=== PATIENT | female | born 1945 | race Caucasian/White ===

== ENCOUNTER 2023-06-13 11:59 | Emergency (ER) | payer OTHER, SELFPAY ==
--- NOTE | ~2023-06-13 | XR_ITS ---
EXAMINATION: XR foot RT min 3V DATE: 06/13/2023 12:32 INDICATION: Right foot injury. TECHNIQUE: 4 views of right foot were obtained. COMPARISON: None. FINDINGS: Bone alignment is normal. There is a nondisplaced fracture of medial base of first distal p halanx. There is mild osteoarthritis of first metatarsophalangeal joint and some of the interphalange al joints. There is an enthesophyte at the posterior aspect of calcaneal tuberosity. IMPRESSION: 1. Nondisplaced fracture of medial base of first distal phalanx. Reviewed, dictated and finalized at location A. [employer]HEMAT[employer]
--- NOTE | ~2023-06-13 | XR_ITS ---
EXAMINATION: XR finger 5th LT min 2V DATE: 06/13/2023 12:31 INDICATION: Left hand fifth digit injury and pain. TECHNIQUE: 4 views of left hand fifth digit were obtained. COMPARISON: None. FINDINGS: Bone alignment is normal. There is a chip avulsion fracture of palmar base of fifth middle phalanx. 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 IMPRESSION: 1. Chip avulsion fracture of palmar base of fifth middle phalanx. Reviewed, dictated and finalized at location A. 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
[2023-06-13 12:10] VITALS: BP 135/59; PULSE 77; RESP 16; TEMP 36.8; O2SAT 99
--- NOTE | 2023-06-13 12:18 | ED.FALL ---
HPI - Fall General Chief Complaint: Extremity Injury, Lower Stated Complaint: Fall Injury/ Right Toes/Left Finger Time Seen by Provider: 06/13/23 12:06 History of Present Illness HPI Narrative: Patient presents for evaluation of right foot and left little finger. Patient states she was going into her house and missed the step caught her left little finger on the washer catching her toe on the little lip feet prior to entering her home. Patient states she did not hit her head and no denies any other injury. Swelling and bruising to her great right toe 2nd and 3rd toe. No deformity noted. Swelling and bruising to her left little finger no deformity noted no open areas noted. Related Data Allergies Allergy/AdvReac Type Severity Reaction Status Date / Time No Known Allergies Allergy Unverified 05/25/15 08:26 Review of Systems Review of Systems: CONSTITUTIONAL: Denies fever, chills, or sweats. EYES: Denies visual changes, redness, or discharge. ENT: Denies rhinorrhea, congestion, sore throat, or otalgia. CARDIOVASCULAR: Denies chest pain, palpitations, or edema. RESPIRATORY: Denies cough or dyspnea. GASTROINTESTINAL: Denies abdominal pain, nausea, vomiting, or diarrhea. GENITOURINARY: Denies dysuria or hematuria. SKIN: Denies rash or itching. MUSCULOSKELETAL: Denies back pain, joint pain, or myalgia. NEUROLOGIC: Denies headache, numbness, or weakness. PSYCHIATRIC: Denies anxiety or depression. PMFSH Comments At time of signature, agree with nursing past medical, surgical, social and family history. There is no relevant family history pertinent to the presenting complaint Exam Narrative: GENERAL: Well-appearing, well-nourished, and in no acute distress. HEAD: Normocephalic, atraumatic. EYES: PERRLA and EOMI. ENT: Nares clear, no rhinorrhea or epistaxis. Mucous membranes moist. NECK: Supple. CHEST: Clear to auscultation. No respiratory distress. HEART: Regular rate and rhythm. No murmur heard. Normal peripheral pulses. ABDOMEN: Soft, nontender, nondistended, normal active bowel sounds. EXTREMITIES: Normal range of motion. No edema.HAND EXAM - Skin intact, no laceration, no swelling, no erythema, normal digit cascade with flexion of fingers, median nerve, ulnar nerve, radial nerve is intact. Normal sensation of each side of each finger, can perform `ok? sign, `cross over finger test of index and middle fingers? and `thumbs up? sign, normal thumb opposition, no scissoring. good capillary refill and radial pulse. normal flexion and extension of fingers and wrist. normal supination at wrist. Normal forearm and elbow exam. Tenderness swelling to left little finger. ANKLE EXAM SKIN INTACT. NORMAL DP PULSE, NORMAL CAP REFILL. NORMAL SENSATION. bruising tenderness and swelling to right great toe 2nd and 3rd toe. N: Warm, dry, no rash. NEURO: No focal deficits. Alert and oriented x3. [place] Coma Scale Eye Opening: Spontaneous 4 [place] Coma Scale Motor: Obeys Commands 6 [place] Coma Scale Verbal: Oriented 5 [place] Coma Scale Total 15 Course Course Level of Care: Express Care Visit Vital Signs Vital signs: Vital Signs Temperature 36.8 C 06/13/23 12:10 Pulse Rate 77 06/13/23 12:10 Respiratory Rate 16 06/13/23 12:10 Blood Pressure 135/59 L 06/13/23 12:10 Pulse Oximetry 99 06/13/23 12:10 Oxygen Delivery Room Air 06/13/23 12:10 Temperature 36.8 C 06/13/23 12:10 Pulse Rate 77 06/13/23 12:10 Respiratory Rate 16 06/13/23 12:10 Blood Pressure 135/59 L 06/13/23 12:10 Pulse Oximetry 99 06/13/23 12:10 Oxygen Delivery Room Air 06/13/23 12:10 MDM - Fall Imaging Data Radiologist's impression: Chip avulsion fracture of palmar base of fifth middle phalanx. Nondisplaced fracture of medial base of first distal phalanx. Discharge Plan Discharge Clinical Impression: Fall, Toe contusion, Finger contusion, Hand contusion, Foot abrasion, Foot injury Patient Disposition: Home,
== END 2023-06-13 12:50 | disposition home or self-care (01) ==
PROVIDERS: Emergency Provider Nurse Practitioner Family; PCP Family Medicine
DX: S92.424A Nondisplaced fracture of distal phalanx of right great toe, initial encounter for closed fracture (principal); S62.627A Displaced fracture of middle phalanx of left little finger, initial encounter for closed fracture; W18.09XA Striking against other object with subsequent fall, initial encounter; E78.00 Pure hypercholesterolemia, unspecified; I10 Essential (primary) hypertension; Z96.652 Presence of left artificial knee joint
CPT/HCPCS: 29130; 73140; 73630; 99204; G0463

== ENCOUNTER 2025-02-06 19:52 | Emergency (ER) | payer MEDICARE, SELFPAY ==
--- OUTSIDE RECORDS SUMMARY | 2025-02-06 19:54 | XMS_ITS | Continuity of Care Document ---
Author Organization [facility] Address [address] [place] [address] Phone Care Team Providers Care Agency Service Coordinator Name Role Phone Leonor Long OT Unavailable Unavailable Procedures Procedure Date Therapeutic Activities Orthotic Mgmt and Training HFO w/o joints CF Advance Directives Directive Yes / No Effective Date File Name No Information Encounters Encounter Description Practice Location Reason(s) For Visit Diagnoses Date Provider Providers Copied on Encounter [facility], [address], [id number], tel:[phone] [place] No Information Mercedes Galvez. . [facility], [address], [id number], tel:[phone] [place] No Information Mercedes Galvez. . Referring Provider: Angel Coats, [address] [place] [id number], [id number]. tel:[phone] Family History Family Member Type Diagnosis Age At Onset No Information Payers Payer name Insurance type Covered republican ID Authoriza tion(s) [employer] CI [id number] Social History Type Description Quantity Date Captured Comments Sex Female Smoking Status No Information Chief Complaint And Reason For Visit No Information Reason For Referral Reason For Referral No Information History Of Present Illness Encounter Date Complaint History Of Prese nt Illness No Information Functional Status Date Functional Assessmen t No Information Instructions Date Instruction Additional Infor mation No Information Assessments Type Assessment Date No Information Patient Care Teams Name Effective Dates (start - stop) Status Members No Information
--- OUTSIDE RECORDS SUMMARY | 2025-02-06 19:54 | XMS_ITS | Clinical Summary ---
Author Organization [facility] Address [address] [place] [address] Care Team Providers Care Return Clerk Name Role Phone Damon Medeiros MD Primary Care Provider [phone] Daphne Rock OT Unavailable [phone] Avis Silva Unavailable Unavailable Jani Mckeon MD Unavailable Allergies No known active allergies Medications aspirin 81 mg enteric coated tablet Take 1 tablet (81 mg total) by mouth daily Active calcium carbonate-daniel min D3 600 mg (1,500 mg)-2,500 unit capsule Take 1 tablet by mouth 2 (two) times a day Active albuterol 2.5 mg /3 mL (0.083 %) nebulizer solution Take 3 mL (2.5 mg total) by nebulization 4 (four) times a day as needed for wheezing or shortness of breath 300 mL 1 04/03/20 22 Active Additional Information Patient not taking.Reported on 12/26/2024 cholecalcifero l (Vitamin D3) 2000 unit capsule Take 1 capsule (2,000 Units total) by mouth daily Active atorvastatin (LIPITOR) 40 mg tabletIndicati ons:Hyperchole sterolemia,TIA (transient ischemic attack) Take 1 tablet (40 mg total) by mouth daily 90 tablet 3 04/21/20 24 Active hydroCHLOROthi azide (HYDRODIURIL) 25 mg tablet Take 1 tablet (25 mg total) by mouth daily 90 tablet 4 05/03/20 24 025 Active felodipine (PLENDIL) 2.5 mg 24 hr tablet Take 1 tablet (2.5 mg total) by mouth daily 30 tablet 11 07/18/20 24 025 Active losartan (COZAAR) 50 mg tablet TAKE 1 TABLET BY MOUTH TWICE A DAY 200 tablet 1 09/24/19 25 Active omeprazole (PriLOSEC) 40 mg capsuleIndicat ions:Gastroeso phageal reflux disease without esophagitis Take 1 capsule (40 mg total) by mouth daily 30 capsule 11 12/27/19 25 026 Active cetirizine (ZyrTEC) 10 mg tabletIndicati ons:Viral URI Take 1 tablet (10 mg total) by mouth daily as needed for allergies 90 tablet 12/27/19 026 Active fluticasone propionate (FLONASE) 50 mcg/actuation nasal sprayIndicatio ns:Viral URI Administer 2 sprays into each nostril daily 3 each 4 12/27/19 25 Active naproxen (NAPROSYN) 500 mg tablet TAKE 1 TABLET (500 MG TOTAL) BY MOUTH DAILY. 30 tablet 02/07/20 25 Active naproxen (NAPROSYN) 500 mg tablet TAKE 1 TABLET (500 MG TOTAL) BY MOUTH DAILY. 30 tablet 12/27/19 25 Discontinued Active Problems Problem Noted Date Diagnosed Date Acute rhinitis 12/26/2024 Sore throat 12/26/2024 Assessment & Plan (12/26/2024 10:53 AM CDT): Results for orders placed or performed in visit on 12/26/24 COVID-19 POC Collection Time: 12/26/24 9:55 AM Specimen: Nasal Result Value Ref Range COVID-19 Ag POC (BD Veritor) Presumptive Negative Presumptive Negative, Invalid POCT rapid strep A Collection Time: 12/26/24 9:55 AM Result Value Ref Range Rapid Strep A, POC Negative Negative Mild erythema on exam, no exudate. See discussion above regarding postnasal drainage. Instructed patient to continue alternating Tylenol and ibuprofen, continue saltwater gargles. Follow-up if no improvement in the next 1 week or sooner if experiencing any new or worsening symptoms. Viral URI 12/26/2024 Assessment & Plan (12/26/2024 10:55 AM CDT): Nasal drainage increased for the past 3 days. Drainage is clear. No sinus pressure or headache. Encouraged use of sinus irrigation as well as use of flonase nasal spray. Covid testing negative in office today. Discussed viral nature of illness, lungs clear on exam. She denies having any shortness of breath, chills or changes in appetite. T-max 100.2 2 days ago, has not had any additional fevers. Given history of mycobacterium infection, discussed checking chest x-ray, patient declines today. Would like for her to check in later this week with symptom update, patient agreeable. Gastroesophageal reflux disease without esophagi tis 12/26/2024 Assessment & Plan (12/26/2024 10:57 AM CDT): Patient reports reflux symptoms when lying flat, sour tasting contents in her mouth. Taking OTC antacid with mild improvement. Recommended course of PPI for the next 6 weeks, prescribed omeprazole 40 mg daily. Reviewed medication administration and scheduling instructions. Encouraged her to avoid eating prior to lying down. Denies any globulus sensation or feeling of food getting stuck. No coughing with meals. Acute recurrent maxillary sinusitis 07/21/2024 Assessment & Plan (08/04/2024 2:22 PM INVESTMENT BANKING ANALYST): Treatment failure with Cephalexin. Will order Levofloxacin and advised to continue with OTC cough medicine. Will continue to monitor. Advised if no improvement in 5 days to reach out. Assessment & Plan (07/21/2024 3:41 PM INVESTMENT BANKING ANALYST): Will order Guaifenesin and Cephalexin for infection coverage. Will continue to monitor. Annual physical exam 05/04/2024 Assessment & Plan (05/14/2024 3:02 PM CDT): Focus of exam is preventative in nature. Reviewed immunizations, reivewed sun/skin cancer sreneing. Reviewed colon/breat cancer screening. R efviewed fall prevention. Reivewed current stressors and support with recent separation and pending divorce. Will continue to follow and reviewed CBT options. Right shoulder strain, initial encounter 024 Contusion of left hand 11/30/2023 Hip strain, right, initial encounter 11/30/2023 Sprain of right knee 11/30/2023 Contusion of right hand 10/06/2023 Fall 10/06/2023 Hospital discharge follow-up 10/06/2023 Assessment & Plan (10/06/2023 1:10 PM INVESTMENT BANKING ANALYST): Symptomatically improved. Continue with conservative measures. RTC for any worsening symptoms. I, Torrie Padgett, NICK have personally reviewed pertinent inpatient and/or ED records, including discharge medications and [facility] if applicable. This patient's discharge medication list has been reviewed and reconciled with her outpatient medication list and has also been reviewed with patient and/or caregiver. I have noted any changes. Mycobacterium avium complex 10/06/2023 Assessment & Plan (05/14/2024 3:01 PM CDT): Continue f/uw with pulmonary. No increaed cough, no wheezing, no congestion. Assessment & Plan (10/07/2023 1:17 PM INVESTMENT BANKING ANALYST): Following closely with pulmonology and will continue to do so. Consulted with her sandwich and drink cart operator as well who recommended ordering sputum culture if Reyna is able to produce 1. [address] that order as well. BMI 26.0-26.9,adult 10/06/2023 Assessment & Plan (08/04/2024 1:57 PM INVESTMENT BANKING ANALYST): Weight appropriate for patient. Situational anxiety 01/04/2023 Assessment & Plan (01/04/2023 11:32 AM CDT): Declines need for medication to help with moods. Denies depressive symptoms, appetite change or sleep disturbance. Patient with supportive daughter, no safety concerns in the home. Reviewed need for follow up with any changes. Closed fracture of one rib of right side 023 Assessment & Plan (10/06/2023 1:10 PM INVESTMENT BANKING ANALYST): Continue with conservative measures. Right hand pain 03/07/2022 Closed fracture of right hand 03/05/2022 Overview (03/05/2022): Added automatically from request for surgery [id number] History of TIA (transient ischemic attack) 04/30 Assessment & Plan (05/14/2024 3:00 PM CDT): Reivewed secondayr prevention including statin and continue antiplateelt therapy with aspirin. WIll montior ersponse. Assessment & Plan (04/30/2021 9:22 PM CDT): LDL goal <70. Was switched to atorvastatin 40mg at 12/2020 appt. Will repeat lipid. Physical exam, annual 01/09/2021 Assessment & Plan (05/17/2023 3:59 PM CDT): Preventive exam; review health risk questionnaire. Updated care providers. Discussed recommended health screening and vaccination history. Declines tdap, varicella, influenza and pna vaccine. Assessment & Plan (05/14/2022 8:54 PM CDT): Preventive exam; reviewed recommended preventive screenings and vaccinations. Encourage annual flu vaccine. Wear sunscreen/protective clothing when outdoorsVery active at home.. Declines vaccines, tdap/varicella/influenza. Last c-scope 2011, normal Last mammogram 07/21-normal. Assessment & Plan (01/09/2021 9:51 AM CDT): Very active at home. Working on making dietary changes, decr fatty/greasy foods. Declines vaccines, tdap/varicella Last c-scope 2011, normal with 10yr schedule Last mammogram 07/21-normal. Annual screening schedule. 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 Continue nasal saline Follow up in one year Assessment & Plan (01/22/2021 9:20 AM CDT): Nasal saline 1-2 times per day and as needed Follow up one year Assessment & Plan (01/09/2021 8:00 AM CDT): (0.6cm soft tissue mass) noted on MRI. Followed by ENT-Dr. Cortez. Will repeat endoscopy in 3 months, preferred observation vs biopsy. Next apt 01/24/21. Assessment & Plan (10/16/2020 1:01 PM CDT): Discussed Observation with clinical following with scope in 3 months versus Endoscopic Biopsy of Nasopharyngeal Mass Risks and complications: Anesthesia, bleeding, infection, benign versus malignant pathology, recurrence of lesion, injury to arteries, nerves and veins, scarring and need for further treatment She wished to proceed with Observation at this point Epistaxis 10/16/2020 Assessment & Plan (10/16/2020 9:32 AM CDT): Humidifier at bedside Nasal saline spray (Simply saline, Little Remedies, Gilmer, [place]es[place]us) 2 second sprays or 2 squeezes into each nostril while looking down over the sink, do not need to sniff in 2-3 times per day BMI 27.0-27.9,adult 10/08/2020 Assessment & Plan (12/26/2024 10:58 AM CDT): Discussed healthy diet and importance of regular physical activity. Assessment & Plan (07/21/2024 3:41 PM INVESTMENT BANKING ANALYST): Weight appropriate for patient. Assessment & Plan (05/17/2023 4:00 PM CDT): Weight is stable. Assessment & Plan (01/04/2023 10:12 AM CDT): Weight is stable. Assessment & Plan (05/14/2022 8:53 PM CDT): Discussed healthy diet and importance of regular physical activity.BMI is acceptable for this patient. Assessment & Plan (05/01/2021 9:36 AM CDT): Discussed healthy diet and importance of regular physical activity. Active/busy lifestyle. Assessment & Plan (01/09/2021 9:18 AM CDT): Discussed healthy diet and importance of regular physical activity. Assessment & Plan (10/08/2020 1:17 PM INVESTMENT BANKING ANALYST): Discussed healthy diet and importance of regular physical activity. BMI is acceptable for this patient. 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 Educated regarding the need to vaccinate for personal protection and to limit the viruses in the community to protect those most vulnerable. Assessment & Plan (10/08/2020 1:19 PM INVESTMENT BANKING ANALYST): Discussed and the patient refuses immunization today. Educated regarding the need to vaccinate for personal protection and to limit the viruses in the community to protect those most vulnerable. Assessment & Plan (06/02/2019 2:24 PM CDT): No HD flu vaccine available today. Will rtc once shipment rec'd. Midline cystocele 05/17/2018 Accidental fall 01/21/2018 Postmenopausal bleeding 12/28/2017 Presence of left artificial knee joint 8 Cystocele, unspecified 04/27/2017 Overview (10/06/2023): Cystocele;Recorded Elsewhere: No Location: [facility] Source: EHR Chronic: N Practice ID: [id number] Billable Time: 11:00:00 AM Former cigarette smoker 05/22/2016 Overview (11/05/2016): Ex-cigarette smoker Leukocytosis 07/14/2015 Overview (10/06/2023): Elevated white blood cell count, unspecified;Practice ID: [id number] Senile osteoporosis 12/18/2013 Overview (10/06/2023): Senile osteoporosis;Practice ID: [id number] Osteoporosis 12/16/2013 Overview (11/05/2016): Osteoporosis Assessment & Plan (11/16/2024 7:55 AM CDT): Reviewed calcium and vitamin D suppelmentation. Reivewed options with prior alendronate etherapy and will montior response. Assessment & Plan (05/14/2024 2:59 PM CDT): Revoewed prior discussnino of antiresoprtive agents. Will continue calcium and vitamin D supplementation. Assessment & Plan (01/04/2023 10:11 AM CDT): Encouraged patient to call and schedule bone density test. Continues calcium and vitamin D supplement. Assessment & Plan (05/14/2022 8:52 PM CDT): 07/23/15: L fem neck -1.9 total hip -1.5 lumbar spine -2.6 10/27/18: R fem neck -1.7 tot hip -1.3 L fem neck -2.7 total hip -2.2 L spine - 2.9 10/18/20: L fem neck -2.5 L tot hip -2.2 L spine -3.0 Continues reclast, calcium and vitamin d supplement. Due for repeat dexa 09/2022. Assessment & Plan (01/09/2021 9:30 AM CDT): T-score from 10/08/20 shows no sig changes: L fem neck -2.5 L tot hip -2.2 L spine -3.0 Will stop fosamax d/t side effects. Will follow up with [facility] to re- start reclast. Will repeat dexa in 2 years (10/22). Assessment & Plan (10/08/2020 1:19 PM INVESTMENT BANKING ANALYST): 07/23/15 L fem neck -1.9 total hip -1.5 lumbar spine -2.6 10/27/18=R fem neck-1.7 tot hip-1.3 L fem neck-2.7 tot hip-2.2 L spine -2.9 DEXA ordered. Will contact with results once received. Assessment & Plan (06/02/2019 2:22 PM CDT): Takes vitamin D The blood level will be checked today. Advise to get 10 min of sun exposure to the hands and face 2-3 days of the week to boost Vit D levels. Essential hypertension 12/16/2013 Overview (11/05/2016): Hypertension Assessment & Plan (11/16/2024 7:54 AM CDT): Stable on losartan, hctz and felodipine. Will continue to follow response. No chest pains/pressures/palpitations. Assessment & Plan (05/14/2024 3:00 PM CDT): Not at [place] on amlodipine and hctz with uptitration to 25mg daily. Will add losartan. And monitor response. Assessment & Plan (05/17/2023 4:01 PM CDT): Blood pressure is well controlled, patient states she is currently holding losartan. BP today 128/82, continue amlodipine 10 mg daily. Reviewed labs today with patient. Assessment & Plan (01/04/2023 9:43 AM CDT): Stable; continue losartan 50 mg daily and amlodipine 10 mg daily. Assessment & Plan (05/14/2022 8:52 PM CDT): Condition is stable Discussed/ordered labs, encouraged healthy, low carbohydrate lifestyle and at least 150min/week of exercise, continue on losartan 50 mg daily and amlodipine 10 mg daily. Assessment & Plan (04/30/2021 9:34 PM CDT): The blood pressure is under good control. Ideally it should be under 130/80. Continue medications without adjustment. Continue efforts to eat well (4-5 fruits and veggies) daily and exercise for about 30 min nearly every day. Watch salt intake, keeping to less than 2000mg per day. Limit alcohol. Include strategies to cope with stress. Labs ordered today; will contact w/results once received. Assessment & Plan (01/09/2021 8:10 AM CDT): Doing well on amlodipine and losartan. Checking BP at home. Will call if SBP >140, DBP>90-will schedule nurse visit if unable to check at home. Assessment & Plan (10/05/2020 6:15 AM INVESTMENT BANKING ANALYST): Currently normotensive. Patient is on amlodipine and losartan which will be held until tomorrow to allow for permissive hypertension. Assessment & Plan (06/02/2019 2:23 PM CDT): Here today for HTN check Taking medications regularly Working on diet and exercise BP readings at home: see scanned paper for BP readings. No SOB, palpitations, ankle swelling, or chest pain BP slowly trending back downward w/addition of amlodipine. Hypercholesterolemia 12/16/2013 Overview (11/06/2016): Hypercholesterolemia Assessment & Plan (11/16/2024 7:54 AM CDT): Continues on atorvastaitn and will monitor response. No new myalgias/arthalgias. Assessment & Plan (05/14/2024 3:00 PM CDT): Stable on atorvastatin and continue to follow response. Reivewed myaglias and arthalgias precautions. Assessment & Plan (05/17/2023 4:00 PM CDT): Continue atorvastatin 40 mg daily. Assessment & Plan (01/04/2023 10:12 AM CDT): Stable; continue atorvastatin 40 mg daily, reviewed previous lipid panel with patient. Assessment & Plan (05/14/2022 2:36 PM CDT): TC 137 HDL 69 TRG 82 LDL 52 Continue atorvastatin 40 mg daily. Assessment & Plan (05/01/2021 9:35 AM CDT): 01/02/21 NO=383 HDL=50 TG=52 LDL=82 TC/HDL=3.0 05/01/21 PV=025 HDL=65 TG=46 LDL=78 TC/HDL=2.4 NONHDL=88 The 10-year ASCVD risk score (Jaime KLEIN Jr., et al., 2013) is: 26.1% Values used to calculate the score: Age: 75 years Sex: Female Is Non- : No Diabetic: No Tobacco smoker: No Systolic Blood Pressure: 130 mmHg Is BP treated: Yes HDL Cholesterol: 50 mg/dL Total Cholesterol: 152 mg/dL Was switched to atorvastatin 40mg after 12/2020 appt. Discussed goal LDL <70. Patient should focus on limiting bad fats in the diet and using exercise as a way to improve the lipid status. Secondary prevention. Reviewed medications. Denies any statin Ses. Reviewed diet/exercise recommendations. Reviewed red flags. Assessment & Plan (01/09/2021 9:07 AM CDT): Switched to atorvastatin 40mg w/ concurrent plavix usage after TIA. LDL preferred to be <70. LDL 01/02/21=82. Will work on diet changes, decreasing greasy/fatty foods. Recheck lipids in 3 months. Assessment & Plan (10/08/2020 1:18 PM INVESTMENT BANKING ANALYST): Pharmacist has informed Mrs Duke that she cannot take plavix & simvastatin 40mg but can take w/atorvastatin. Switched to atorvastatin 40mg. To have lipid repeated in 3 mos. Goal LDL less than 70. Assessment & Plan (10/05/2020 6:15 AM INVESTMENT BANKING ANALYST): Patient is on Zocor. Will check a lipid panel. Will start patient on atorvastatin 20 nightly and adjust dose pending lipid results. Assessment & Plan (06/02/2019 2:23 PM CDT): We will check labs and make adjustments to medications as needed. Patient should focus on limiting bad fats in the diet and using exercise as a way to improve the lipid status. Secondary prevention. Reviewed medications. Lipid panel ordered; will call w/results when rec'd. Denies any statin Ses. Reviewed diet/exercise recommendations. Reviewed red flags. Resolved Problems Problem Noted Date Diagnosed Date Resolved Date Foot abrasion 10/06/2023 10/06/2023 Foot injury 10/06/2023 10/06/2023 Finger contusion 10/06/2023 10/06/2023 Toe contusion 10/06/2023 10/06/2023 Infection due to Mycobacterium avium 05/17/2023 05/17/2023 TIA (transient ischemic attack) 10/04/2020 05/04/2024 Assessment & Plan (01/09/2021 9:32 AM CDT): No longer taking plavix. LDL goal <70. Repeat lipid in 3 mo. Not symptoms since 10/05 at [facility]. Reviewed red flags. Assessment & Plan (10/08/2020 1:21 PM INVESTMENT BANKING ANALYST): Reviewed testing/notes from [facility] 10/04-10/05. Has f/u appt w/Dr Marcial Switched from simvastatin 40mg to atorvastatin 40mg. Taking ASA 81mg daily as well as plavix 75mg daily. Discussed LDL goal less than 70. Resolution of issues from [facility] 10/05. Reviewed red flags. Assessment & Plan (10/05/2020 6:16 AM INVESTMENT BANKING ANALYST): Versus CVA. Patient seems to have some slight weakness in her right hand rn palliative care and may have a right facial droop along with pronator drift on her right currently although patient feels back at baseline. Ultrasound of carotids, echo with bubble study and MRI of brain are pending. PT, OT and speech eval. Will check an A1c and lipid panel. Neurology has been consulted, await their evaluation. Will allow for permissive hypertension for 24 hours and will not treat unless systolic greater than 220 or diastolic greater than 120 until 1630 today. Need for vaccination 06/02/2019 021 Need for pneumococcal vaccination 06/02/2019 10/08/2020 Assessment & Plan (06/02/2019 2:24 PM CDT): Prevnar 13 vaccine given today. Discussed possible tenderness/redness at injection site. BMI 25.0-25.9,adult 06/02/2019 10/09/19 21 Assessment & Plan (06/02/2019 2:24 PM CDT): Discussed healthy diet and importance of regular physical activity. BMI is acceptable for this patient. Hyperglycemia 06/02/2019 10/08/2020 Assessment & Plan (06/02/2019 2:25 PM CDT): A1c ordered; will contact w/results once rec'd. Closed fracture of left distal radius 10/06/2018 10/08/2020 Increased frequency of urination 06/20/2018 10/06/2023 Overview (10/06/2023): Frequency of urination;Recorded Elsewhere: No Location: [facility] Source: EHR Chronic: N Practice ID: [id number] Billable Time: 03:30:00 PM Failed total knee, left, initial encounter 04/26/2018 10/08/2020 Overview (04/26/2018): Added automatically from request for surgery [id number] Arthrofibrosis of knee joint, left 04/26/2018 04/30/2021 Overview (04/26/2018): Added automatically from request for surgery [id number] Aftercare following surgery 02/07/2018 10/08/2020 Closed fracture of right distal radius 01/21/2018 10/08/2020 Sprain of left knee, initial encounter 01/21/2018 10/08/2020 Facial abrasion, initial encounter 01/21/2018 10/08/2020 Bronchitis 11/24/2017 10/08/2020 Assessment & Plan (11/24/2017 9:24 AM CDT): 07/27/17 IMPRESSION: PERSISTENT MILD PATCHY RIGHT MIDDLE LOBE INFILTRATE, NOT SIGNIFICANTLY CHANGED Still with Cough-no change History of pneumonia 11/24/201701/09/ 021 Assessment & Plan (11/24/2017 12:52 PM CDT): CXR 07/14/17-IMPRESSION: 1. Right middle lobe infiltrate; some improvement compared to 07/10/2017. 2. Minimal left midlung and right upper lung infiltrates that were probably also present previously; similar. 3. No new cardiopulmonary abnormality seen. 07/27/17-Last cxr showed IMPRESSION: PERSISTENT MILD PATCHY RIGHT MIDDLE LOBE INFILTRATE, NOT SIGNIFICANTLY CHANGED. Will need to repeat CXR-Pt with persistent cough If still abnormal, will need to get CT chest Injury of left shoulder 11/24/2017 03/0 04/2021 Assessment & Plan (11/24/2017 12:53 PM CDT): Injured shoulder while pulling a window down. Will check x-ray Pneumonia, community acquired 07/10/2017 10/08/2020 Assessment & Plan (07/14/2017 1:17 PM INVESTMENT BANKING ANALYST): Will treat with azithromycin and Rocephin IV. Will keep bronchodilators on board. Suspect this is a viral pneumonia. She is doing much better, cough is much less, tolerating physical activity without oxygen. Influenza A 07/10/2017 10/08/2020 Assessment & Plan (07/14/2017 1:17 PM INVESTMENT BANKING ANALYST): Starting Tamiflu at 75 mg p.o. b.i.d. for 5 days. Plans the symptoms are resolved. Treatment is completed. Volume depletion 07/10/2017 10/08/2020 Assessment & Plan (07/12/2017 11:34 AM INVESTMENT BANKING ANALYST): Will encourage p.o. fluids and continue IV fluids. Acute respiratory failure with hypoxia 07/10/2017 10/08/2020 Assessment & Plan (07/14/2017 1:17 PM INVESTMENT BANKING ANALYST): The patient presented with respiratory rate of 29, oxygen saturation 85% on room air. This is secondary to pneumonia and influenza a. this is resolved. Knee pain 05/22/2016 10/08/2020 Overview (11/05/2016): Knee pain Swelling 05/18/2016 10/08/2020 Overview (11/05/2016): Swelling Disorder of joint 02/03/2014 10/08/2020 Overview (11/05/2016): ARTHROPATHY NOS-MULT Current smoker 12/16/2013 10/08/2020 Overview (11/06/2016): Active smoker Encounters Date Type Department Care Team Description 12/26/2024 10:00 AM CDT [facility] Visit [facility] [address] [place] [address] Shahana Alcantara, NICK Viral URI (Primary Dx); Sore throat; Gastroesophageal reflux disease without esophagitis; BMI 27.0-27.9,adult from Last 3 Months Immunizations Immunization Administration Dates Next Due Influenza, Trivalent, High D ose, Split, Preservative Free, Intramuscular 04/27/2018,04/26/2018 Influenza, Unspecified 08/04/2024(Deferr ed: Patient Refused),07/21/2024(Deferred: Patient Refused),07/21/2024(Deferred: Patient Refused),05/02/2024(Deferred: Patient Refused),04/02/2024(Deferred: Patient Refused),10/06/2023(Deferred: Patient Refused),05/17/2023(Deferred: Patient Refused),05/02/2023(Deferred: Patient Refused),04/02/2023(Deferred: Patient Refused),04/02/2023(Deferred: Patient Refused),05/14/2022(Deferred: Patient Refused),05/02/2022(Deferred: Patient Refused),05/02/2022(Deferred: Patient Refused),05/02/2022(Deferred: Patient Refused),05/02/2022(Deferred: Patient Refused),03/03/2022(Deferred: Patient Refused),05/02/2021(Deferred: Patient Refused),05/02/2021(Deferred: Patient Refused),05/01/2021(Deferred: Patient Refused),04/02/2021(Deferred: Patient Refused),10/08/2020(Deferred: Patient Refused),05/02/2020(Deferred: Patient Refused),05/02/2020(Deferred: Patient Refused),06/02/2019(Deferred: Patient Refused),05/02/2019(Deferred: Patient Refused),04/27/2018,08/05/2017(Deferre d: Patient Refused),08/03/2017(Deferred: Patient Refused),08/03/2016(Deferred: Patient Refused) Pneumococcal Conjugate PCV 13 04/27/2018 Pneumococcal Polysaccharide PPV23 06/02/2019 Surgical History Surgery Date Site/Laterality Comments CARPAL TUNNEL RELEASE Carpal tunnel release LAMINECTOMY Laminectomy OTHER SURGICAL HISTORY 08/02/2011 - 08/01/2012 Posttraumatic left wirst mass suggestive of ganglion cyst (pathology pendin: Excision left wrist mass OTHER SURGICAL HISTORY 08/02/2011 - 08/01/2012 TOrn left lateral meniscus/discoid medial meniscus: Left knee arthroscopic partial lateral meniscectomy OTHER SURGICAL HISTORY Laminectomy 1990 OTHER SURGICAL HISTORY Ulnar nerve 2000 OTHER SURGICAL HISTORY Bilateral carpal tunnel 2000 OTHER SURGICAL HISTORY hysterectomy 1988 OTHER SURGICAL HISTORY knee arthoscopic KNEE ARTHROSCOPY Left Arthroscopy knee - 2014, 2015, 2017 OTHER SURGICAL HISTORY left knee manipulation WRIST FRACTURE SURGERY 12/31/2017 - 01/29/2018 Left JOINT REPLACEMENT HYSTERECTOMY FRACTURE SURGERY KNEE ARTHROSCOPY W/ LATERAL RELEASE SPINE SURGERY TUBAL LIGATION Medical History Medical History Date Comments Hypertension Hypertension Hx Other Medical Posttraumatic l eft wirst mass suggestive of gangli Hx Other Medical TOrn left later al meniscus/discoid medial meniscus Hx Other Medical 11-03-16 Left tot al knee revision (tibial component); Comments: [facility] 11/16/2016 - Pneumonia 07/2017 in [facility] f or 2 weeks Osteopenia Hyperlipidemia TIA (transient ischemic attack) 09/2020 Closed fracture of left distal radius 10/06/2018 Closed fracture of right distal radius 01/21/2018 Motion sickness GERD (gastroesophageal reflu x disease) 1 MONTH Osteoporosis Infection mycrobacterium avium complex Increased frequency of urination 06/20/2018 Frequency of urination;Recorded Elsewhere: No Location: [facility] Source: EHR Chronic: N Practice ID: [id number] Billable Time: 03:30:00 PM Foot abrasion 10/06/2023 Hand contusion 10/06/2023 Toe contusion 10/06/2023 Finger contusion 10/06/2023 Arthritis Family History Medical History Relation Name Comments COPD Father Mustapha Gallardo Cancer Father Mustapha Gallardo Cancer; Cause of : Cancer Heart disease Father Mustapha Gallardo Hypertension Father Mustapha Gallardo Hypertension; Lymphoma Father Mustapha Gallardo lymphoma; Breast cancer Father's Sister Alzheimer's disease Mother Reyna Gallardo Alzheim er's Disease; Cause of : Alzheimer's Disease Cancer Other 1 Family history of Cancer; Heart disease Other 2 Family history of Heart disease; Hypertension Other 3 Family history of Hypertension; Breast cancer Paternal Grandmother Relation Name Status Comments Father Mustapha Gallardo (Age 83) Father's Sister Mother Reyna Gallardo (Age 40) Other 1 Other 2 Other 3 Paternal Grandmother Social History Tobacco Use Types Packs/Day Years Used Date Smoking Tobacco: Former Cigarettes 0.3 30 0 08/02/1967 - 08/02/1997 Smokeless Tobacco: Never Tobacco Cessation:Counseling Given: Not Answered Alcohol Use Standard Drinks/Week Comments Yes 1 (1 standard drink = 0.6 oz pur e alcohol) weekly beer AUDIT-C Answer Date Recorded Q1: How often do you have a drink containing alcohol? Never 10/06/2023 Q2: How many drinks containi ng alcohol do you have on a typical day when you are drinking? Patient does not drink Q3: How often do you have si x or more drinks on one occasion? Never 10/06/2023 PHQ-2 Answer Date Recorded PHQ-2 Total Score (If total score is 3 or more points, staff should administer the PHQ-9) 0 12/26/2024 Personal Safety Answer Date Recorded Have you ever been in or are you currently in a harmful physical or emotional relationship or is someone making you feel afraid or unsafe? 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 Gender Identity Female 10/08/2022 7:27 PM INVESTMENT BANKING ANALYST Sexual Orientation Not on file Obstetrics History Para Term AB IAB SAB Ectopic Multiple Livin g Live Births 6 6 6 Date Outcome GA Total Labor Labor/2nd/3rd Weight Sex Type Anes PTL Lauryn A1 A5 Name Clin Term Term Term Term Term Term Last Filed Vital Signs Vital Sign Reading Time Taken Comments Blood Pressure 128/60 12/26/2024 9:48 AM CDT Pulse 74 12/26/2024 9:48 AM CDT Temperature 36.8 C (98.3 F) 12/26/2024 9:48 AM CDT Respiratory Rate 16 12/26/2024 9:48 AM CDT Oxygen Saturation 98% 12/26/2024 9:48 AM CDT Inhaled Oxygen Concentration - - Weight 73.9 kg (163 lb) 12/26/2024 9:48 AM CDT Height 165.1 cm (5' 5) 12/26/2024 9:48 AM CDT Body Mass Index 27.12 12/26/2024 9:48 AM CDT Plan of Treatment Health Maintenance Due Date Last Done Comments DTaP/Tdap/Td Vaccine (1 - Tdap) 1954 Hepatitis B Screening 1961 Zoster Vaccine (1 of 2) 1993 Osteoporosis Screening-Bone Density Scan 01/14/2025 01/14/2023, 10/18/2020, 10/18/2020, Additional history exists Influenza Vaccine (#1) 2025 8, 04/27/2018, 04/26/2018 Well Visit 65+ 05/03/2025 05/03/2024, 05/02, 05/14/2022, Additional history exists Depression Screening 12/26/2025 12/26/2024, 11/06/2024, 08/04/2024, Additional history exists Fall Risk Assessment 12/26/2025 12/26/2024, 11/06/2024, 07/21/2024, Additional history exists Pneumococcal vaccine 65+ Completed 06/02/2019, 04/03 Medical Devices Implanted Type Area Desk Clerks Supervisor Device Identifier Shelf Expiration Date Model / Serial / Lot [id number] 2.4mm Va-Lcp Narrow Two Column Volar Distal Radius Plates Implanted:Qty: 1 on 01/28/2018 by Wilbur Marquez MD at [facility] Right: Wrist Synthes I [id number] 02.211.520 / / Synthes .112 2.4mm 12mm Self Tap Lock Variable Angle Stardrive T8 Screw Bone - [id number] Implanted:Qty: 1 on 01/28/2018 by Wilbur Marquez MD at [facility] Right: Wrist Synthes I .210.112 / / Synthes .118 2.4mm 18mm Self Tap Lock Variable Angle Stardrive T8 Screw Bone - [id number] Implanted:Qty: 1 on 01/28/2018 by Wilbur Marquez MD at [facility] Right: Wrist Synthes I 02.210.118 / / Synthes 210.122 2.4mm 22mm Self Tap Lock Variable Angle Stardrive T8 Screw Bone - [id number] Implanted:Qty: 1 on 01/28/2018 by Wilbur Marquez MD at [facility] Right: Wrist Synthes I 02.210.122 / / 210.124 Mm Variable Angle Locking Screw Implanted:Qty: 1 on 01/28/2018 by Wilbur Marquez MD at [facility] Right: Wrist Synthes I [id number] 02.210.124 / / Synthes 201.764 2.4mm 14mm Self Tap Stardrive Cortex T8 Screw Bone - [id number] Implanted:Qty: 1 on 01/28/2018 by Wilbur Marquez MD at [facility] Right: Wrist Synthes I 201.764 / / Synthes 201.774 2.4mm 4mm 24mm Self Tap Self Retain Stardrive Low Profile Cortex - [id number] Implanted:Qty: 1 on 01/28/2018 by Wilbur Marquez MD at [facility] Right: Wrist Synthes I 201.774 / / Total Attorneys [id number] Attune Revision Full Coated Knee 37mm Sleeve Tibial Porocoat Latex Free - [id number] Implanted:Qty: 1 on 05/25/2018 by Wilbur Marquez MD at [facility] Left: Knee Barafon 05/01/2028 [id number] / / [id number] [employer] [id number] Attune 20mm 60mm Revision Press Fit Knee Stem Femoral Sterile Latex Free - [id number] Implanted:Qty: 1 on 05/25/2018 by Wilbur Marquez MD at [facility] Left: Knee [employer] Inc 03/01/2028 [id number] / / [id number] [employer] [id number] Attune H4 Mm Revision Cement Knee Distal 6 Augment Femoral Sterile Latex Free - [id number] Implanted:Qty: 1 on 05/25/2018 by Wilbur Marquez MD at [facility] Left: Knee [employer] Inc 05/01/2028 [id number] / / [id number] [employer] [id number] Revision Cement Constrain Knee Left 6 Component Femoral Attune - [id number] Implanted:Qty: 1 on 05/25/2018 by Wilbur Marquez MD at [facility] Left: Knee [employer] 01/30/2028 [id number] / / [id number] [employer] [id number] Attune 20mm 60mm Revision Press Fit Knee Stem Femoral Sterile Latex Free - [id number] Implanted:Qty: 1 on 05/25/2018 by Wilbur Marquez MD at [facility] Left: Knee [employer] 01/29/2027 [id number] / / [id number] Attune Knee System Revision Femoral Sleeve Porocoat Fully Coated Implanted:Qty: 1 on 05/25/2018 by Wilbur Marquez MD at [facility] Left: Knee [employer] Inc C1713 04/01/2028 151 / / [id number] [employer] [id number] Attune 4mm Revision Cement Knee Posterior 6 Augment Femoral Latex Free - [id number] Implanted:Qty: 1 on 05/25/2018 by Wilbur Marquez MD at [facility] Left: Knee [employer] 05/01/2028 [id number] / / [id number] Cement Bone Palacos R+G Gentamicin High Viscosity - [id number] Implanted:Qty: 1 on 05/25/2018 by Wilbur Marquez MD at [facility] Left: Knee [employer] Inc 03/01/2021 [id number] / / [id number] Attune Knee System Revision Crs Rotating Platform Insert [id number] Implanted:Qty: 1 on 05/25/2018 by Wilbur Marquez MD at [facility] Left: Knee [employer] Inc C1776 09/01/2022 [id number] / / [id number] Biocomposites 620-010 Stimulan Rapid Cure Kit P[employer] Designer 10cc 20cc Bone Void - [id number] Implanted:Qty: 1 on 05/25/2018 by Wilbur Marquez MD at [facility] Left: Knee Biocomposites 12/30/2020 620-010 / / 12/17-R370/3 71 Description:Mixed with 1 g V ancomycin powder & 1.2g Tobramycin Total Attorneys [id number] Attune Cement Revision Rotate Platform Knee 5 Baseplate Tibial - [id number] Implanted:Qty: 1 on 05/25/2018 by Wilbur Marquez MD at [facility] Left: Knee Wir3sUY Untangle 04/01/2028 [id number] / / [id number] Plate Implanted:Qty: 1 on 03/06/2022 by Angel Coats MD at [facility] Right: Fingers ARTHREX AR-05332-34 / NA / [id number] Description:[facility] ITEM# [id number] [employer] Plate Bone Y Shape 6 Hole Small Bone 1.4mm Ti [id number] - Sn/A - [id number] Implanted:Qty: 1 on 03/06/2022 by Angel Coats MD at [facility] Right: Fingers [employer] Inc c1776 NV-[id number]-06 / N/A / [id number] [employer] Screw Bone Cortical Threaded 1.4x9mm Ti Ar-49636-55 - Sn/A - [id number] Implanted:Qty: 2 on 03/06/2022 by Angel Coats MD at [facility] Right: Fingers [employer] C1713 AR-39810-42 / N/A / [id number] [employer] Screw Bone Threaded Locking 1.4x11mm Ti [id number]-16 - Sn/A - [id number] Implanted:Qty: 5 on 03/06/2022 by Angel Coats MD at [facility] Right: Fingers [employer] C1713 LD-[id number]-27 / N/A / [id number] [employer] Screw Bone Threaded Locking 1.4x8mm Ti Ar-14935p-88 - Sn/A - [id number] Implanted:Qty: 3 on 03/06/2022 by Angel Coats MD at [facility] Right: Fingers [employer] C1713 VU-[id number]-48 / N/A / [id number] [employer] Screw Bone Cortical Threaded 1.4x10mm Ti Ar-88820-20 - Sn/A - [id number] Implanted:Qty: 2 on 03/06/2022 by Angel Coats MD at [facility] Right: Fingers [employer] C1713 AR-85545-28 / N/A / [id number] [employer] Screw Bone Cortical Threaded 1.4x8mm Ti Ar-53742-56 - Sn/A - [id number] Implanted:Qty: 2 on 03/06/2022 by Angel Coats MD at [facility] Right: Fingers [employer] C1713 AR-58200-53 / N/A / [id number] [employer] Screw Bone Threaded Locking 1.4x13mm Ti Op-28049r-71 - Sn/A - [id number] Implanted:Qty: 1 on 03/06/2022 by Angel Coats MD at [facility] Right: Fingers [employer] Inc C1713 DR-32457E-83 / N/A / [id number] [employer] Screw Bone Threaded Locking 1.4x9mm Ti Xq-[id number]-16 - Sn/A - [id number] Implanted:Qty: 1 on 03/06/2022 by Angel Coats MD at [facility] Right: Fingers [employer] C1713 TG-[id number]-06 / N/A / [id number] Procedures Procedure Name Priority Date/Time Associated Diagnosis Comments POCT RAPID STREP Routine 12/26/2024 9:55 AM CDT Sore throat COVID-19 POC Routine 12/26/2024 9:55 AM CDT Sore throat DEXA AXIAL SKELETON BONE DENSITY 1 OR MORE SITES Schedule Routine, Read Routine (OP Routine) 01/14/2023 1:40 PM CDT Asymptomatic menopausal state from Last 3 Months or Most Recently Relevant to Health Maintenance Results * COVID-19 POC (12/26/2024 9:55 AM CDT) COVID-19 Ag POC (BD Veritor) Presumptive Negative Presumptive Negative, Invalid [facility] Nasal 12/26/2024 9:55 AM CDT us Shahana Alcantara NP POINT OF CARE TEST ORDERABL ES Final Result Performing Organization Address City/State/[facility] Co de Phone Number [facility] [address] [place] [address] * POCT rapid strep A (12/26/2024 9:55 AM CDT) Pathologist [facility] Rapid Strep A, POC Negative Negative Swab 12/26/2024 9:55 AM CDT us Shahana Alcantara NP POINT OF CARE TEST ORDERABL ES Final Result * Dexa Axial Skeleton Bone Density 1 Or 2 Site (01/14/2023 1:40 PM CDT) Anatomical Region Laterality Modality Body N/A Other 01/16/2023 8:10 AM CDT Narrative 01/16/2023 8:11 AM CDT EXAM DESCRIPTION: DEXA AXIAL SKELETON BONE DENSITY 1 OR MORE SITES REASON FOR STUDY: 77 y/o year old F with given history of screening. 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 LEFT HIP: Total BMD is 0.691 g/cm2 T-score is -2.1 Femoral neck BMD is 0.564 g/cm2 T-score is -2.6 FRAX: FRAX not reported due to T-scores of hip, femoral neck and/or spine being at or below -2.5 (Osteoporosis). IMPRESSION: Osteoporosis. REFERENCE: Bone mineral density: Normal (T-score above or = -1.0) Low bone mass (T-score between -1.0 and -2.5) replaces the previously used term osteopenia Osteoporosis (T-score = or below -2.5) Medical evaluation for secondary causes of low bone mineral density may be appropriate. FRAX is a World Health Organization validated fracture risk assessment tool that calculates a person's 10 year probability of a major osteoporosis related fracture and hip fracture. According to the National Osteoporosis Foundation guidelines, postmenopausal women and men age 50 or older with low bone mass and a 10 year probability of a major osteoporosis related fracture = or greater than 20% or a 10 year probability of a hip fracture = or greater than 3% should be considered for treatment. For further information, including treatment recommendations, please refer to the 2019 ISCD Official Positions (http://www.iscd.org) and the NOF's Clinician's Guide to Prevention and Treatment of Osteoporosis (http://www.nof.org/professionals/clinical-guidelines) THIS IS AN ELECTRONICALLY VERIFIED FINAL REPORT 01/16/2023 8:11 AM - Electronically signed by Les Santos M.D. MF: BRIAN Report ID: [id number] Reading Location: [place] [address] Procedure Note Les Santos MD - 01/16/2023 EXAM DESCRIPTION: DEXA AXIAL SKELETON BONE DENSITY 1 OR MORE SITES REASON FOR STUDY: 77 y/o year old F with given history of screening. 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 LEFT HIP: Total BMD is 0.691 g/cm2 T-score is -2.1 Femoral neck BMD is 0.564 g/cm2 T-score is -2.6 FRAX: FRAX not reported due to T-scores of hip, femoral neck and/or spine beingat or below -2.5 (Osteoporosis). IMPRESSION: Osteoporosis. REFERENCE: Bone mineral density: Normal (T-score above or = -1.0) Low bone mass (T-score between -1.0 and -2.5) replaces thepreviously used term osteopenia Osteoporosis (T-score = or below -2.5) Medical evaluation for secondary causes of low bone mineral density may be appropriate. FRAX is a World Health Organization validated fracture risk assessmenttool that calculates a person's 10 year probability of a major osteoporosisrelated fracture and hip fracture. According to the National OsteoporosisFoundation guidelines, postmenopausal women and men age 50 or older with low bonemass and a 10 year probability of a major osteoporosis related fracture = or greater than 20% or a 10 year probability of a hip fracture = or greaterthan 3% should be considered for treatment. For further information, including treatment recommendations, please referto the 2019 ISCD Official Positions (http://www.iscd.org) and the NOF's Clinician's Guide to Prevention and Treatment of Osteoporosis (http://www.nof.org/professionals/clinical-guidelines) THIS IS AN ELECTRONICALLY VERIFIED FINAL REPORT 01/16/2023 8:11 AM - Electronically signed by Les Santos M.D. MF: BRIAN Report ID: [id number] Reading Location: [place] [address] Damon Medeiros MD IMG DXA PROCEDURES Final Result from Last 3 Months or Most Recently Relevant to Health Maintenance Insurance MEDICARE [facility] [place] [facility] MEDICARE ADVANTAGE [facility] MEDICARE ADVANTAGE [place] [address] Advance Directives For more information, please contact: [phone] * Full Code (Latest Code Status on File) Date Activated Date Inactivated Comments 10/04/2020 9:17 PM 10/05/2020 8:35 PM * Full Code Date Activated Date Inactivated Comments 05/25/2018 4:52 PM 05/26/2018 6:11 PM * Full Code Date Activated Date Inactivated Comments 07/10/2017 3:35 PM 07/14/2017 4:47 PM Care Teams Return Clerk Relationship Specialty Start Date End Date Damon Medeiros MD [address] [place] [address] PCP - General 10/30/16 Daphne Rock OT [address] [place] [address] Occupational Therapist Occupational Therapy 03/21/18 Avis Silva COTA Occupational Therapist Occupational Therapy 04/06/18 [place] [address] [facility] [address] [place] [address] Consulting Physician Pulmonary Disease 05/17/23
--- OUTSIDE RECORDS SUMMARY | 2025-02-06 19:54 | XMS_ITS | Encounter Summary ---
Author Organization [facility] Healthcare Address [address] [place] [address] Care Team Providers Care Regional Intermodal Truck Driver Name Role Phone Damon Medeiros MD Primary Care Provider [phone] Daphne Rock OT Unavailable [phone] Avis Silva Unavailable Unavailable Alise Tavares CMA Unavailable [phone] Maria Dolores Gary MA Unavailable [phone] Jani Mckeon MD Unavailable [phone] Encounter Details Date Type Department Care Team (Late st Contact Info) Description 05/29/2020 Telephone [facility] [address] [place] [id number] Greg Olvera, RT Social History Tobacco Use Types Packs/Day Years Used Date Smoking Tobacco: Former Cigarettes Q uit: 1997 Smokeless Tobacco: Never Alcohol Use Standard Drinks/Week Comments Yes 1 (1 standard drink = 0.6 oz pur e alcohol) weekly beer PHQ-2 Answer Date Recorded PHQ-2 Total Score (If total score is 3 or more points, staff should administer the PHQ-9) 0 03/04/2020 Comments No Sex and Gender Information Value Date Recorded Sex Assigned at Not on file Legal Sex Female 3:26 PM 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 Gender Identity Female 10/08/2022 7:27 PM 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 Sexual Orientation Not on file documented as of this encounter Plan of Treatment Not on file documented as of this encounter Visit Diagnoses Not on filedocumented in this encounter Additional Health Concerns Infection Onset Date Last Indicated Resolved Time COVID: Suspected 08/03/2021 08/03/2021 08/03/2021 8:32 AM 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 COVID: Suspected 08/03/2021 08/03/2021 08/03/2021 8:54 AM 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 COVID: Suspected 09/15/2021 09/15/2021 09/15/2021 11:34 AM 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 COVID: Suspected 12/18/2021 12/18/2021 12/18/2021 11:10 AM CDT COVID19 12/18/2021 12/18/2021 12/28/2021 3:05 AM CDT COVID: Recovered Comment:Added based on recent COVID infection. 12/28/2021 12/30/2021 04/27/2022 3:05 AM C DT COVID: Suspected 05/28/2022 05/28/2022 05/28/2022 7:41 PM CDT COVID: Suspected 12/26/2024 12/26/2024 12/27/2024 7:26 PM CDT documented as of this encounter Care Teams Regional Intermodal Truck Driver Relationship Specialty Start Date End Date Damon Medeiros MD [address] [place] [address] PCP - General 10/30/16 Daphne Rock OT [address] [place] [address] Occupational Therapist Occupational Therapy 03/21/18 Avis Silva COTA Occupational Therapist Occupational Therapy 04/06/18 Alise Tavares CMA [address] [place] [address] [address] [place] [address] ACO Care Claim Investigator 10/07/20 10/07/20 Maria Dolores Gary MA [address] [facility] [address] [place] [address] ACO Care Claim Investigator 11/06/22 11/06/22 [place] [address] [facility] [address] [place] [address] Consulting Physician Pulmonary Disease 05/17/23 documented as of this encounter
--- OUTSIDE RECORDS SUMMARY | 2025-02-06 19:54 | XMS_ITS | Clinical Summary ---
Author Organization 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 Gender Identity Not on file Sexual Orientation Not on file Plan of Treatment Health Maintenance Due Date Last Done Comments DTAP/TDAP/TD VACCINES (1 - Tdap) 1962 ZOSTER VACCINE (1 of 2) 1993 RSV VACCINE (60+ or ) (1 - 1-dose 75+ series) 2018 INFLUENZA VACCINE (#1) 2025 04/27/2018, 2017 OSTEOPOROSIS SCREENING 10/18/2025 1, 10/27/2018, 07/23/2015 PNEUMOCOCCAL VACCINE 50+ YEARS Completed 06/02/2019 , 04/27/2018 Insurance [facility] MCR Member Subscriber Plan / Payer (Ef fective 2023-Present) Name:Reyna Duke Relation to Subscriber:Self Name:Reyna Duke Payer ID:[id number] (NAIC) Type:O Address: [place] [id number] [facility] Address: [place] [id number]
--- OUTSIDE RECORDS SUMMARY | 2025-02-06 19:54 | XMS_ITS | Referral Summary ---
Author Organization [facility] Address [address] [place] [address] Care Team Providers Care Fill Manager Name Role Phone Damon Medeiros MD Primary Care Provider [phone] Daphne Rock OT Unavailable [phone] Avis Silva Unavailable Unavailable Jani Mckeon MD Unavailable [phone] Encounters Date Type Department Care Team Description 12/26/2024 10:00 AM CDT Office Visit [facility] [address] [place] [address] Shahana Alcantara NP Viral URI (Primary Dx); Sore throat; Gastroesophageal reflux disease without esophagitis; BMI 27.0-27.9,adult from Last 3 Months Allergies No known active allergies Medications aspirin [...] daily as needed for allergies 90 tablet 4 12/27/19 25 026 Active fluticasone propionate (FLONASE) 50 mcg/actuation nasal sprayIndicatio ns:Viral URI Administer 2 sprays into each nostril daily 3 each 4 12/27/19 25 Active naproxen (NAPROSYN) 500 mg tablet TAKE 1 TABLET (500 MG TOTAL) BY MOUTH DAILY. 30 tablet 02/07/20 25 Active naproxen (NAPROSYN) 500 mg tablet TAKE 1 TABLET (500 MG TOTAL) BY MOUTH DAILY. 30 tablet 12/27/19 25 025 Discontinued Active Problems Problem Noted Date Diagnosed [...] 07/21/2024 Assessment & Plan (08/04/2024 2:22 PM CROOK OPERATOR): Treatment failure with Cephalexin. Will order Levofloxacin and advised to continue with OTC cough medicine. Will continue to monitor. Advised if no improvement in 5 days to reach out. Assessment & Plan (07/21/2024 3:41 PM CROOK OPERATOR): Will order Guaifenesin and Cephalexin for infection [...] 10/06/2023 Assessment & Plan (10/06/2023 1:10 PM CROOK OPERATOR): Symptomatically improved. Continue with conservative measures. RTC for any worsening symptoms. ITorrie NP have personally reviewed pertinent inpatient and/or ED [...] congestion. Assessment & Plan (10/07/2023 1:17 PM CROOK OPERATOR): Following closely with pulmonology and will continue to do so. 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 We did [address] that order as well. BMI 26.0-26.9,adult 10/06/2023 Assessment & Plan (08/04/2024 1:57 PM CROOK OPERATOR): Weight appropriate for patient. Situational anxiety 01/04/2023 Assessment & Plan (01/04/2023 11:32 AM CDT): Declines need for medication to help with moods. Denies depressive symptoms, appetite change or sleep disturbance. Patient with supportive daughter, no safety concerns in the home. Reviewed need for follow up with any changes. Closed fracture of one rib of right side 023 Assessment & Plan (10/06/2023 1:10 PM CROOK OPERATOR): Continue with conservative measures. Right hand pain 03/07/2022 Closed fracture of right hand 03/05/2022 Overview (03/05/2022): Added automatically from request for surgery [id number] History of TIA (transient ischemic attack) 04/30 [...] Nasal saline spray (Simply saline, Little Remedies, [place], [place]) 2 second sprays or 2 squeezes into [...] Nasal saline spray (Simply saline, [place]ies, [place], [place]) 2 second sprays or 2 squeezes into each nostril while looking down over the sink, do not need to sniff in 2-3 times per day BMI 27.0-27.9,adult 10/08/2020 Assessment & Plan (12/26/2024 10:58 AM CDT): Discussed healthy diet and importance of regular physical activity. Assessment & Plan (07/21/2024 3:41 PM CROOK OPERATOR): Weight appropriate for patient. Assessment & Plan [...] activity. Assessment & Plan (10/08/2020 1:17 PM CROOK OPERATOR): Discussed healthy diet and importance of regular [...] vulnerable. Assessment & Plan (10/08/2020 1:19 PM CROOK OPERATOR): Discussed and the patient refuses immunization today. [...] 04/27/2017 Overview (10/06/2023): Cystocele;Recorded Elsewhere: No Location: [facility] Source: EHR Chronic: N Practice ID: [id number] [...] d/t side effects. [facility] reclast. Will repeat dexa in 2 years (10/22). Assessment & Plan (10/08/2020 1:19 PM CROOK OPERATOR): 07/23/15 L fem neck -1.9 total hip [...] home. Assessment & Plan (10/05/2020 6:15 AM CROOK OPERATOR): Currently normotensive. Patient is on amlodipine and [...] & Plan (05/01/2021 9:35 AM CDT): 01/02/21 NK=837 HDL=50 TG=52 LDL=82 TC/HDL=3.0 05/01/21 OG=258 HDL=65 TG=46 LDL=78 TC/HDL=2.4 NONHDL=88 The 10-year ASCVD risk score (Jaimeclyde KLEIN Jr., et al., 2013) is: 26.1% [...] months. Assessment & Plan (10/08/2020 1:18 PM CROOK OPERATOR): Pharmacist has informed Mrs Duke that she cannot take plavix & simvastatin 40mg but can take w/atorvastatin. Switched to atorvastatin 40mg. To have lipid repeated in 3 mos. Goal LDL less than 70. Assessment & Plan (10/05/2020 6:15 AM CROOK OPERATOR): Patient is on Zocor. Will check a [...] 3 mo. Not symptoms since 10/05 at [facility]. Reviewed red flags. Assessment & Plan (10/08/2020 1:21 PM CROOK OPERATOR): Reviewed testing/notes from [facility] 10/04-10/05. Has f/u appt w/Dr Marcial Switched from simvastatin 40mg to atorvastatin 40mg. Taking ASA 81mg daily as well as plavix 75mg daily. Discussed LDL goal less than 70. Resolution of issues from [facility] 10/05. Reviewed red flags. Assessment & Plan (10/05/2020 6:16 AM CROOK OPERATOR): Versus CVA. 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 and may have a right facial droop [...] (10/06/2023): Frequency of urination;Recorded Elsewhere: No Location: [facility] Source: EHR Chronic: N Practice ID: [id number] Billable Time: 03:30:00 PM Failed total knee, left, initial encounter 04/26/2018 10/08/2020 Overview (04/26/2018): Added automatically from request for surgery [id number] Arthrofibrosis of knee joint, left 04/26/2018 04/30/2021 Overview (04/26/2018): Added automatically from request for surgery [id number] Aftercare following surgery 02/07/2018 10/08/2020 Closed fracture of right distal radius 01/21/2018 10/08/2020 Sprain of left knee, initial encounter 01/21/2018 10/08/2020 Facial abrasion, initial encounter 01/21/2018 10/08/2020 Bronchitis 11/24/2017 10/08/2020 Assessment & Plan (11/24/2017 9:24 AM CDT): 07/27/17 IMPRESSION: PERSISTENT MILD PATCHY RIGHT MIDDLE LOBE INFILTRATE, NOT SIGNIFICANTLY CHANGED Still with Cough-no change History of pneumonia 11/24/2017 021 Assessment & Plan (11/24/2017 12:52 PM [...] 10/08/2020 Assessment & Plan (07/14/2017 1:17 PM CROOK OPERATOR): Will treat with azithromycin and Rocephin IV. Will keep bronchodilators on board. Suspect this is a viral pneumonia. She is doing much better, cough is much less, tolerating physical activity without oxygen. Influenza A 07/10/2017 10/08/2020 Assessment & Plan (07/14/2017 1:17 PM CROOK OPERATOR): Starting Tamiflu at 75 mg p.o. b.i.d. for 5 days. Plans the symptoms are resolved. Treatment is completed. Volume depletion 07/10/2017 10/08/2020 Assessment & Plan (07/12/2017 11:34 AM CROOK OPERATOR): Will encourage p.o. fluids and continue IV fluids. Acute respiratory failure with hypoxia 07/10/2017 10/08/2020 Assessment & Plan (07/14/2017 1:17 PM CROOK OPERATOR): The patient presented with respiratory rate of 29, oxygen saturation 85% on room air. This is secondary to pneumonia and influenza a. this is resolved. Knee pain 05/22/2016 10/08/2020 Overview (11/05/2016): Knee pain Swelling 05/18/2016 10/08/2020 Overview (11/05/2016): Swelling Disorder of joint 02/03/2014 10/08/2020 Overview (11/05/2016): ARTHROPATHY NOS-MULT Current smoker 12/16/2013 10/08/2020 Overview (11/06/2016): Active smoker Immunizations Immunization Administration Dates Next Due Influenza, [...] PCV 13 04/27/2018 Pneumococcal Polysaccharide PPV23 06/02/2019 Social History Tobacco Use Types Packs/Day Years [...] on file Legal Sex Female 3:26 PM CROOK OPERATOR Gender Identity Female 10/08/2022 7:27 PM CROOK OPERATOR Sexual Orientation Not on file Last Filed Vital Signs Vital Sign Reading [...] 12/26/2024 9:48 AM CDT Plan of Treatment Not on file Medical Devices Implanted Type Area Edge Finisher Device Identifier Shelf Expiration Date Model / Serial / Lot [id number] 2.4mm Va-Lcp Narrow Two Column Volar Distal Radius Plates Implanted:Qty: 1 on 01/28/2018 by Wilbur Marquez MD at [facility] Right: Wrist Synthes I [id number] 02.211.520 / / Synthes .112 2.4mm 12mm Self Tap Lock Variable Angle Stardrive T8 Screw Bone - [id number] Implanted:Qty: 1 on 01/28/2018 by Wilbur Marquez MD at [facility] Right: Wrist Synthes I 02.210.112 / / Synthes 210.118 2.4mm 18mm Self Tap Lock Variable Angle Stardrive T8 Screw Bone - [id number] Implanted:Qty: 1 on 01/28/2018 by Wilbur Marquez MD at [facility] Right: Wrist Synthes I 02.210.118 / / Synthes 210.122 2.4mm 22mm Self Tap Lock Variable Angle Stardrive T8 Screw Bone - [id number] Implanted:Qty: 1 on 01/28/2018 by Wilbur Marquez MD at [facility] Right: Wrist Synthes I 02.210.122 / / 02.210.124 Mm Variable Angle Locking Screw Implanted:Qty: 1 on 01/28/2018 by Wilbur Marquez MD at [facility] Right: Wrist Synthes I [id number] 02.210.124 / / Synthes 201.764 2.4mm 14mm Self Tap Stardrive Cortex T8 Screw Bone - [id number] Implanted:Qty: 1 on 01/28/2018 by Wilbur Marquez MD at [facility] Right: Wrist Synthes I 201.764 / / Synthes 201.774 2.4mm 4mm 24mm Self Tap Self Retain Stardrive Low Profile Cortex - [id number] Implanted:Qty: 1 on 01/28/2018 by Wilbur Marquez MD at [facility] Right: Wrist Synthes I 201.774 / / Depuy Storyful [id number] Attune Revision Full Coated Knee 37mm Sleeve Tibial Porocoat Latex Free - [id number] Implanted:Qty: 1 on 05/25/2018 by Wilbur Marquez MD at [facility] Left: Knee DEPUY SYNTHES reBuy.de 05/01/2028 [id number] / / [id number] Depuy Orthopaedics Inc [id number] Attune 20mm 60mm Revision Press Fit Knee Stem Femoral Sterile Latex Free - [id number] Implanted:Qty: 1 on 05/25/2018 by Wilbur Marquez MD at [facility] Left: Knee Depuy Orthopaedics Inc 03/01/2028 [id number] / / [id number] Depuy Orthopaedics Inc [id number] Attune H4 Mm Revision Cement Knee Distal 6 Augment Femoral Sterile Latex Free - [id number] Implanted:Qty: 1 on 05/25/2018 by Wilbur Marquez MD at [facility] Left: Knee Depuy Orthopaedics Inc 05/01/2028 [id number] / / [id number] Depuy Orthopaedics Inc [id number] Revision Cement Constrain Knee Left 6 Component Femoral Attune - [id number] Implanted:Qty: 1 on 05/25/2018 by Wilbur Marquez MD at [facility] Left: Knee Depuy Orthopaedics Inc 01/30/2028 [id number] / / [id number] Depuy Orthopaedics Inc [id number] Attune 20mm 60mm Revision Press Fit Knee Stem Femoral Sterile Latex Free - [id number] Implanted:Qty: 1 on 05/25/2018 by Wilbur Marquez MD at [facility] Left: Knee Depuy Orthopaedics Inc 01/29/2027 [id number] / / [id number] Attune Knee System Revision Femoral Sleeve Porocoat Fully Coated Implanted:Qty: 1 on 05/25/2018 by Wilbur Marquez MD at [facility] Left: Knee Depuy Orthopaedics Inc C1713 04/01/2028 151 / / [id number] Depuy Orthopaedics Inc [id number] Attune 4mm Revision Cement Knee Posterior 6 Augment Femoral Latex Free - [id number] Implanted:Qty: 1 on 05/25/2018 by Wilbur Marquez MD at [facility] Left: Knee Depuy Orthopaedics Inc 05/01/2028 [id number] / / [id number] Cement Bone Palacos R+G Gentamicin High Viscosity - [id number] Implanted:Qty: 1 on 05/25/2018 by Wilbur Marquez MD at [facility] Left: Knee Her[employer] Inc 03/01/2021 [id number] / / [id number] Attune Knee System Revision Crs Rotating Platform Insert [id number] Implanted:Qty: 1 on 05/25/2018 by Wilbur Marquez MD at [facility] Left: Knee Depuy Orthopaedics Inc C1776 09/01/2022 1517-4 / / [id number] Biocomposites 620-010 Stimulan Rapid Cure Kit Paste Search Engine Optimization Consultant 10cc 20cc Bone Void - [id number] Implanted:Qty: 1 on 05/25/2018 by Wilbur Marquez MD at [facility] Left: Knee Biocomposites 12/30/2020 620-010 / / 12/17-R370/3 71 Description:Mixed with 1 g V ancomycin powder & 1.2g Tobramycin DepPillPack [id number] Attune Cement Revision Rotate Platform Knee 5 Baseplate Tibial - [id number] Implanted:Qty: 1 on 05/25/2018 by Wilbur Marquez MD at [facility] Left: Knee DEPUY TickPick 04/01/2028 [id number] / / [id number] Plate Implanted:Qty: 1 on 03/06/2022 by Angel Coats MD at [facility] Right: [facility] ARTHREX AR-47310-77 / NA / [id number] Description:[facility] ITEM# [id number] Arthrex Inc Plate Bone Y Shape 6 Hole Small Bone 1.4mm Ti [id number] - Sn/A - [id number] Implanted:Qty: 1 on 03/06/2022 by Angel Coats MD at [facility] Right: Fingers Arthrex Inc c1776 [id number] / N/A / [id number] Ar[employer]rex Inc Screw Bone Cortical Threaded 1.4x9mm Ti Ar-19106-52 - Sn/A - [id number] Implanted:Qty: 2 on 03/06/2022 by Angel Coats MD at [facility] Right: Fingers [employer]rex Inc C1713 AR-87553-58 / N/A / [id number] Ar[employer] Screw Bone Threaded Locking 1.4x11mm Ti Eq-36698r-42 - Sn/A - [id number] Implanted:Qty: 5 on 03/06/2022 by Angel Coats MD at [facility] Right: Fingers [employer]rex Inc C1713 [id number]-[id number]-[id number] / N/A / [id number] Ar[employer]rex Inc Screw Bone Threaded Locking 1.4x8mm Ti Ks-[id number] - Sn/A - [id number] Implanted:Qty: 3 on 03/06/2022 by Angel Coats MD at [facility] Right: Fingers [employer]rex Inc C1713 [id number]-69 / N/A / [id number] Ar[employer]rex Inc Screw Bone Cortical Threaded 1.4x10mm Ti Ar-55727-36 - Sn/A - [id number] Implanted:Qty: 2 on 03/06/2022 by Angel Coats MD at [facility] Right: Fingers [employer] Inc C1713 AR-32545-43 / N/A / [id number] Ar[employer]rex Inc Screw Bone Cortical Threaded 1.4x8mm Ti Ar-18280-89 - Sn/A - [id number] Implanted:Qty: 2 on 03/06/2022 by Angel Coats MD at [facility] Right: Fingers [employer]rex Inc C1713 AR-93525-44 / N/A / [id number] Arthrex Inc Screw Bone Threaded Locking 1.4x13mm Ti Vl-[id number]-29 - Sn/A - [id number] Implanted:Qty: 1 on 03/06/2022 by Angel Coats MD at [facility] Right: Fingers [employer]rex Inc C1713 JS-[id number]-84 / N/A / [id number] Ar[employer]rex Inc Screw Bone Threaded Locking 1.4x9mm Ti [id number]-81 - Sn/A - [id number] Implanted:Qty: 1 on 03/06/2022 by Angel Coats MD at [facility] Right: Fingers Ar[employer]rex Inc C1713 [id number] / N/A / [id number] Procedures Procedure Name Priority Date/Time Associated Diagnosis [...] * COVID-19 POC (12/26/2024 9:55 AM CDT) [facility] COVID-19 Ag POC (BD Veritor) Presumptive Negative Presumptive Negative, Invalid [facility] Nasal 12/26/2024 9:55 AM CDT Shahana Alcantara NP POINT OF CARE TEST ORDERABL ES Final Result [facility] [address] [facility] [place] [address] * POCT rapid strep A (12/26/2024 9:55 AM CDT) [facility] Rapid Strep A, POC Negative Negative Swab 12/26/2024 9:55 AM CDT Shahana Alcantara NP POINT OF CARE TEST [...] F with given history of screening. Postmenopausal Edge Finisher/Model: Neolinear (S/N [id number]) CLINICAL INFORMATION: Current height: 65 inches Maximum [...] Les Santos M.D. MF: BRIAN Report ID: [id number] Reading Location: [place] [address] Procedure Note Les Santos MD - 01/16/2023 EXAM DESCRIPTION: DEXA AXIAL SKELETON BONE DENSITY 1 OR MORE SITES REASON FOR STUDY: 77 y/o year old F with given history of screening. Postmenopausal Edge Finisher/Model: Sanswire Discovery SL (S/N [id number]) CLINICAL INFORMATION: Current height: 65 inches Maximum [...] Les Santos M.D. MF: BRIAN Report ID: [id number] Reading Location: [place] [address] Damon Medeiros MD IMG DXA PROCEDURES Final Result from Last 3 Months or Most Recently Relevant to Health Maintenance Insurance MEDICARE [facility] Address: [facility] [address] [place] [address] [facility] MEDICARE ADVANTAGE [facility] MEDICARE ADVANTAGE [place] [id number] [employer] [place] [id number] Advance Directives For more information, please contact: [phone] * Full Code (Latest Code Status on File) Date Activated Date Inactivated Comments 10/04/2020 9:17 PM 10/05/2020 8:35 PM * Full Code Date Activated Date Inactivated Comments 05/25/2018 4:52 PM 05/26/2018 6:11 PM * Full Code Date Activated Date Inactivated Comments 07/10/2017 3:35 PM 07/14/2017 4:47 PM Care Teams Fill Manager Relationship Specialty Start Date End Date Damon Medeiros MD [address] [place] [address] PCP - General 10/30/16 Daphne Rock, OT [address] [place] [address] Occupational Therapist Occupational Therapy 03/21/18 Avis Silva COTA Occupational Therapist Occupational Therapy 04/06/18 [place] [address] [facility] [address] [place] [address] Consulting Physician Pulmonary Disease 05/17/23
--- OUTSIDE RECORDS SUMMARY | 2025-02-06 19:54 | XMS_ITS | Clinical Summary ---
Author Organization [facility] [employer] Address [address] [place] [address] Care Team Providers Care Ribbon Inker Name Role Phone Damon Medeiros MD Primary Care Provider [phone] Jani Nieves MD Unavailable [phone] Source Comments [facility] [employer],non-owned Affiliates and Associated Physician Practices is amultiple site organization consisting of ambulatory clinics and hospital sitesin [place], [place], [place] and [place]. This disclosure is being madepursuant to the Care Everywhere program and may not contain all information available regarding this patient. Last updated 18.[employer] Allergies No known active allergies Medications * Be aware that medications may not be up to date on this document. Alwaysverify current medications with the patient. lisinopril (PRINIVIL; ZESTRIL) 20 MG tablet TAKE 1 TABLET BY MOUTH EVERY DAY 07/27/2017 Active amLODIPine (NORVASC) 2.5 MG tablet 09/06/2017 Active potassium chloride (KLOR-CON) 10 MEQ tablet Take 10 mEq by mouth once daily 10/07/2017 Active simvastatin (ZOCOR) 20 MG tablet Take 20 mg by mouth once daily 11/03/2017 Active Active Problems Problem Noted Date Diagnosed Date Presence of left artificial knee joint 8 Acute respiratory failure with hypoxia 7 Overview (11/23/2017): Last Assessment & Plan: The patient presented with respiratory rate of 29, oxygen saturation 85% on room air. This is secondary to pneumonia and influenza a. this is resolved. Influenza A 07/10/2017 Overview (11/23/2017): Last Assessment & Plan: Starting Tamiflu at 75 mg p.o. b.i.d. for 5 days. Plans the symptoms are resolved. Treatment is completed. 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 Gender Identity Not on file Sexual Orientation Not on file Last Filed Vital Signs Vital Sign Reading Time Taken Comments Blood Pressure - - Pulse - - Temperature - - Respiratory Rate - - Oxygen Saturation - - Inhaled Oxygen Concentration - - Weight 74.8 kg (165 lb) 11/23/2017 1:08 PM CDT Height 167.6 cm (5' 6) 11/23/2017 1:08 PM CDT Body Mass Index 26.63 11/23/2017 1:08 PM CDT Plan of Treatment Health Maintenance Due Date Last Done Comments BONE DENSITY TESTING 1945 MEDICARE AWV 12 MONTHS 1945 DTAP/TDAP/TD VACCINES (1 - Tdap) 1962 PNEUMOCOCCAL VACCINE 50+ (1 of 1 - PCV) 1993 ZOSTER VACCINE (1 of 2) 1993 Respiratory Syncytial Virus (RSV) Vaccine Pt: or over 60 yrs (1 - 1-dose 75+ series) 2018 COVID-19 VACCINE ( - 2023-2 5 season) 2024 DEPRESSION SCREENING 08/02/2024 INFLUENZA VACCINE (Season Ended) 2025 04/27/2018, 04/26/2018 HEPATITIS B VACCINE Aged Out No longe r eligible based on patient's age to complete this topic HIB VACCINE Aged Out No longer eligi ble based on patient's age to complete this topic HPV VACCINE Aged Out No longer eligi ble based on patient's age to complete this topic MENINGOCOCCAL (Group B) VACCINE SHARED DECISION-MAKING Aged Out No longer eligible based on patient's age to complete this topic MENINGOCOCCAL GROUPS A/C/Y/W VACCINE Aged Out No longer eligible b ased on patient's age to complete this topic Insurance [facility] MEDICARE [employer] MED[employer]ARE Care Teams Ribbon Inker Relationship Specialty Start Date End Date Damon Medeiros MD [address] [place] [address] PCP - General Internal Medicine 11/23/17 [place] [address] [address] [place] [id number] Orthopedic Surgery 11/23/17
--- OUTSIDE RECORDS SUMMARY | 2025-02-06 19:54 | XMS_ITS | Encounter Summary ---
Author Organization [facility] Address [address] [address] Care Team Providers Care Executive Communications Manager Name Role Phone Damon Medeiros MD Primary Care Provider [phone] Damon Medeiros MD Primary Care Provider [phone] Damon Medeiros MD Primary Care Provider [phone] Tawkoytcharmaine, Arely MANAGER OF PHOTOGRAPHY Unavailable Unavailabl e Tawkoyty, Arely MANAGER OF PHOTOGRAPHY Unavailable Unavailabl e Daphne Rock OT Unavailable [phone] Avis Silva IRWIN Unavailable Unavailable Tawkoytcharmaine, Arely MANAGER OF PHOTOGRAPHY Unavailable Unavailabl e Alise Tavares CMA Unavailable [phone] Maria Dolores Gary MA Unavailable [phone] Jani Mckeon MD Unavailable [phone] Encounter Details Date Type Department Care Team (Late st Contact Info) Description 08/06/2016 Orders Only [facility] Provider, MD [facility] [place] [address] Social History Tobacco Use Types Packs/Day Years Used Date Smoking Tobacco: Never Alcohol Use Standard Drinks/Week Comments Yes 0 (1 standard drink = 0.6 oz pur e alcohol) Comments Unknown Sex and Gender Information Value Date Recorded Sex Assigned at Not on file Legal Sex Female 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 us Historical Provider [facility] SAMMY MIRANDA Final Result documented in this encounter Visit Diagnoses Not on filedocumented in this encounter Additional Health Concerns Infection Onset Date Last Indicated Resolved Time COVID: Suspected 08/03/2021 08/03/2021 08/03/2021 8:32 AM QUENCHING MACHINE OPERATOR COVID: Suspected 08/03/2021 08/03/2021 08/03/2021 8:54 AM QUENCHING MACHINE OPERATOR COVID: Suspected 09/15/2021 09/15/2021 09/15/2021 11:34 AM QUENCHING MACHINE OPERATOR COVID: Suspected 12/18/2021 12/18/2021 12/18/2021 11:10 AM CDT COVID19 12/18/2021 12/18/2021 12/28/2021 3:05 AM CDT COVID: Recovered Comment:Added based on recent COVID infection. 12/28/2021 12/30/2021 04/27/2022 3:05 AM C DT COVID: Suspected 05/28/2022 05/28/2022 05/28/2022 7:41 PM CDT COVID: Suspected 12/26/2024 12/26/2024 12/27/2024 7:26 PM CDT documented as of this encounter Care Teams Executive Communications Manager Relationship Specialty Start Date End Date Damon Medeiros MD [address] [place] [address] PCP - General 10/30/16 Damon Medeiros MD [address] [place] [address] PCP - General 10/22/16 10/29/16 Damon Medeiros MD [address] [place] [address] PCP - General 07/27/07 10/21/16 Arely Rush LPN [address] [place] [address] Gluing Machine Operator Automatic 07/15/17 07/18/17 Arely Rush LPN [address] [place] [address] Gluing Machine Operator Automatic 01/24/18 01/25/18 Daphne Rock OT [address] [place] [address] Occupational Therapist Occupational Therapy 03/21/18 Avis Sivla COTA Occupational Therapist Occupational Therapy 04/06/18 Arely Rush LPN [address] [place] [address] Gluing Machine Operator Automatic 07/13/18 07/14/18 Alise Tavares CMA [address] [place] [address] ACO Care Coding Machine Operator 10/07/20 10/07/20 Maria Dolores [place], [place] [address] [place] [address] ACO Care Coding Machine Operator 11/06/22 11/06/22 [place] [address] [address] [facility] [address] [place] [address] Consulting Physician Pulmonary Disease 05/17/23 documented as of this encounter
--- OUTSIDE RECORDS SUMMARY | 2025-02-06 19:55 | XMS_ITS | Data Portability ---
Author Organization [facility] [place] Address [address] [place] [address] Care Team Providers Care Health Program Analyst Name Role Phone JENNIFER GARRETT Primary Care Provider [phone] Assessment Encounter Date Assessment Date Assessment LastModified by Organization Details LastModified Time 07/29/2020 07/29/2020 healthy female exam/menopause pap- no further needed mammogram due- ordered and encouraged colonoscopy- she will check with PCP dexa due- ordered and encouraged Encouraged weight bearing exercise and 1500mg daily of Calcium with Vitamin D declines pessary or surgical consult re POP. no urinary difficulties. precautions given. FU 1 year or prn [email or web address] Not available 07/29/2020 14:13:35 Plan of Treatment Reminders Order Date Submit Date Provider Last Modified By Organization Details Last Modified Time Details Appointments None record ed. Lab None record ed. Referral None record ed. Procedures None record ed. Surgeries None record ed. Imaging None record ed. Medication Orders None record ed. Patient TargetsNo targets recorded. Patient InstructionsNo instructions recorded. Reason for Referral None Reported. Results Created Date Observation Date Name Description Value Unit Range Abnormal Flag Note LastModifiedBy Organization Detail LastModifiedTime 08/07/19 21 07/31/2020 MAMMO , scree kiera, bilat eral No observ ation record ed. [email or web address] Not Available 2020 13:20:10 02/05/20 21 10/18/2020 DEXA, axial skele ton + verte bral fract ure asses sment No observ ation record ed. aruehrup Not Available 2020 13:58:28 Result Notes None recorded. Problems Name Problem SNOMED Code Status Onset Date Resolution Date Notes Provider Name and Address Organization Details Recorded Time Speciali zed medical examinat ion Completed 201207/29/2020 Routine gynecolo gical examinat ion;Prac mireya ID: 0001 Shaunna Kenney MD [address], [place], [address], [facility] 0 13:04:14 Screenin g for malignan t neoplasm of cervix Completed 201207/29/2020 Pap Smear;Pr actice ID: 0001 Shaunna Kenney MD [address], [place], [address], [facility] 0 13:04:00 Screenin g for malignan t neoplasm of rectum Completed 201207/29/2020 Screenin g for malignan t neoplasm s of the rectum;P ractice ID: 0001 Shaunna Kenney MD [address], [place], [address], [facility] 0 13:04:03 Senile osteopor osis 01654494 Completed 201307/29/2020 Senile osteopor osis;Pra ctice ID: 0001 Shaunna Kenney MD [address], [place], [address], [facility] 0 13:04:06 Blood leukocyt e number above referenc e range [id number] Completed 201407/29/2020 Elevated white blood cell count, unspecif ied;Prac mireya ID: 0001 Shaunna Kenney MD [address], [place], [address], [facility] [address] 13:03:[address] Concept Completed 201407/29/2020 Encntr for range master exam (general ) (routine ) w/o abn findings ;Practic e ID: 0001 Shaunna Kenney MD [address], [place], [address], [facility] 0 13:04:11 Disorder of pelvic region of trunk Completed 201607/29/2020 Cystocel e;Record ed Elsewher e: No Locat ion: [facility] S ource: EHR Heat Treating Bluer param: N Practi ce ID: 0001 Jos lable Time: 11:00:00 AM Shaunna Kenney MD [address], [place], [address], [facility] [address] 13:03:[address] Concept Completed 201407/29/2020 Encntr for general adult medical exam w/o abnormal findings ;Recorde d Elsewher e: No Locat ion: [facility] S ource: EHR Heat Treating Bluer param: N Practi ce ID: 0001 Jos lable Time: 08:30:00 AM Shaunna Kenney MD [address], [place], [address], [facility] 0 13:04:08 Adult health examinat ion Completed 201007/29/2020 Routine Medical Exam;Rec orded Elsewher e: No Locat ion: [facility] S ource: EHR Heat Treating Bluer param: N Practi ce ID: 0001 Jos lable Time: 02:30:00 PM Shaunna Kenney MD [address], [place], [address], [facility] 0 13:03:40 Increase d frequenc y of urinatio n 126464128 Completed 201707/29/2020 Frequenc y of urinatio n;Record ed Elsewher e: No Locat ion: [facility] S ource: EHR Heat Treating Bluer param: N Practi ce ID: 0001 Jos lable Time: 03:30:00 PM Shaunna Kenney MD [address], [place], [address], [facility] 0 13:03:50 Midline cystocel e 109034739 Active 2017 Cystocel e, midline; Practice ID: 0001 Not Available [facility] 0 19:07:36 Acute vaginiti s 95009034 Completed 201707/29/2020 Acute vaginiti s;Practi ce ID: 0001 Shaunna Kenney MD [address], [place], [address], [facility] 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 0 14:08:09 History of hysterec savita 709624986 Active 2019 Shaunna Kenney MD [address], [place], [address], [facility] 0 14:08:20 Hyperten sive disorder 91457537 Active 2019 Shaunna Kenney MD [address], [place], [address], [facility] 0 14:09:03 Hypercho lesterol emia 41867225 Active 2019 Shaunna Kenney MD [address], [place], [address], [facility] 0 14:09:10 Problem Notes None recorded. Procedures Surgical History Date Name Laterality Status Provider Name and Address Organization Details Recorded Time 6 Vag hyst including t/o completed Shaunna Kenney MD [address], [place], [address], [facility] 07/29/2020 14:09:37 Imaging Results None recorded. Procedure Notes None recorded. Medical Equipment None Reported. Allergies No known drug allergies Medications Name Sig Start Date Stop Date Status Note LastModified by Organization Details LastModified Time Diflucan 150 mg tablet take 1 tablet by oral route once 04/27 completed Prescrib ed Elsewher e: No Locat ion: [facility] odify By: vasile Shahid ncounter DateTime : 04/16/20 17 12:08:23 PM Not Available Not Available Not Available amlodipin e 2.5 mg tablet take 1 tablet by oral route every day 2017 active Prescrib ed Elsewher e: Yes Loca tion: [facility] odify By: vasile Shahid ncounter DateTime : 09/06/19 18 09:15:00 AM Not Available Not Available Not Available Macrobid 100 mg capsule take 1 capsule by oral route every 12 hours with food 04/25 completed Prescrib ed Elsewher e: No Locat ion: [facility] odify By: bijal Shahid ncounter DateTime : 04/16/20 17 12:08:23 PM Not Available Not Available Not Available potassium 99 mg tablet 07/29 completed Prescrib ed Elsewher e: Yes Loca tion: [facility] odify By: vasile Shahid ncounter DateTime : 09/06/19 18 09:15:00 AM Not Available Not Available Not Available Actonel 5 mg tablet take 1 tablet by oral route every day in the morning, at least 30 minutes before the first food, beverage , or medicati on of the day 07/11 completed Prescrib ed Elsewher e: Yes Loca tion: [facility] odify By: carlos lobo DateTime : 04/26/20 11 07:09:54 PM Not Available Not Available Not Available Flagyl 500 mg tablet take 1 tablet by oral route every 12 hours 07/29 completed Prescrib ed Elsewher e: No Locat ion: [facility] odify By: deonte lobo DateTime : 06/28/20 18 01:54:13 PM Not Available Not Available Not Available simvastat in 5 mg tablet take 1 tablet by oral route every day in the evening 04/29 completed Prescrib ed Elsewher e: Yes Loca tion: [facility] odify By: carlos lobo DateTime : 07/11/20 13 11:00:00 AM Not Available Not Available Not Available Prednison e Intensol 5 mg/mL oral concentra te take 1 millilit er by oral route 4 times every day 04/29 completed Prescrib ed Elsewher e: Yes Loca tion: [facility] odify By: kevon Tejeda r DateTime : 04/26/20 11 07:09:54 PM Not Available Not Available Not Available furosemid e 20 mg tablet take 1 tablet by oral route every day 07/29 completed Prescrib ed Elsewher e: Yes Loca tion: [facility] odify By: vasile haysunter DateTime : 09/06/19 18 09:15:00 AM Not Available Not Available Not Available Vitamin D2 1,250 mcg (50,000 unit) capsule take 1 capsule by oral route every week 04/27 completed Prescrib ed Elsewher e: No Locat ion: [facility] odify By: vasile Shahid ncounter DateTime : 12/19/19 14 08:45:00 AM Not Available Not Available Not Available lisinopri l 2.5 mg tablet take 1 tablet by oral route every day 07/29 completed Prescrib ed Elsewher e: Yes Loca tion: [facility] odify By: taylor Siddiqui nter DateTime : 04/26/20 11 07:09:54 PM Not Available Not Available Not Available Stanback Headache Powder 650 mg oral packet 04/29 completed Prescrib ed Elsewher e: Yes Loca tion: [facility] odify By: kevon danielson DateTime : 04/26/20 11 07:09:54 PM Not Available Not Available Not Available Calcio Thea 500 mg tablet 04/29 completed Prescrib ed Elsewher e: Yes Loca tion: [facility] odify By: carlos lobo DateTime : 07/11/20 13 11:00:00 AM Not Available Not Available Not Available aspirin active Not Available Not Avail able Not Available calcium active Not Available Not Avail able Not Available simvastat in active Not Available Not Available Not Available losartan active Not Available Not Avai lable Not Available potassium active Not Available Not Stephenie ilable Not Available Vitamin D3 10 mcg (400 unit) capsule active Prescrib ed Elsewher e: Yes Loca tion: [facility] odify By: taylor garciaer DateTime : 04/26/20 11 07:09:54 PM Not Available Not Available Not Available Vitals Date Recorded Body height Body mass index (BMI) Body weight Systolic And Diastolic Provider Name and Address Organization Details Last Updated DateTime 07/29/2020 165.1 cm 28.5 kg/m2 88101.3 g 174/81 mm[Hg] [facility] 07/29/2020 12:53:37 Social History None recorded. Functional Status None recorded. Mental Status None recorded. Family History Nothing Reported Notes:Father: Cancer, lung, Coronary artery disease Paternal grandmother: Cancer, breast Medical History Condition Response Allergies (Food, seasonal, environmental ) N Other N Breast Cancer N Drug/Latex Allergies/Reactions N Blood Transfusion N Dermatologic Disorders N Lung Disease N Defects or Inherited Disease N Breast Problem N Gestational Diabetes N Hematologic disorders N Anesthesia Complications N History of STI N Deep Vein Thrombosis N Polycystic ovary syndrome N Anxiety Disorder N Autoimmune disease N Arthritis N Infertility N Polyps N Acid Reflux (GERD) N History of abnormal pap N Cancer N Stroke N Varicosities N Neurologic/Epilepsy N Endometriosis N High Cholesterol Y Headaches N Fibromyalgia N Kidney Disease N Heart Problems N Kidney or Bladder Problems N Thyroid Problems N GI Problems N Eating Disorder N Anemia N Art (IVF or FET) N Psychiatric Illness N Ovarian Cancer N Diabetes N Pulmonary (TB, Asthma) N Hepatitis/Liver Disease N Eczema N Urinary Tract Infection N Abuse/Domestic Violence N Asthma N Trauma/Violence N Depression/ depression N Heart Disease N Pre-Eclampsia N Hypertension Y Osteoporosis Y Thrombophilias N Gynecological HistoryNo gynecological history recorded. Obstetrics History GPAL:G 6 P 6 0 0 6 Type Value Full Term 6 Living 6 Total 6 Past Encounters Encounter ID Performer Location Encounter Start Date Encounter Closed Date Diagnosis/Indication Diagnosis SNOMED-CT Code Diagnosis ICD10 Code Diagnosis Note [id number] Shaunna Kenney MD [place] [address] [address] 07/29/2020 12:29:06 07/29/2020 14:31:50 History of hysterectomy 231905685 Z90.711 Vaginal va ult prolapse 762197450 N81.89 Midline cystocele 667055 003 N81.11 Osteoporosis 23327023 M8 1.0 Gynecologi c examination 18476571 Z01.419 Health Concerns Section Related Observation LastModified by Organization Detai ls LastModified Time None Recorded Concern Status LastModified by Organization Details LastModified Time None Recorded Advance Directives Directive None Recorded Payers Insurance Date Sequence Insurance Name Policy Number Policy Bello Covered Member ID Bello Member ID Guarantor Name 07/29/2020 1 [facility] (MEDICARE REPLACEMENT HMO) [id number] Reyna Duke [id number] Reyna Duke Notes Date Note Type Note Provider Name and Address Organization Details Recorded Time 07/29/2020 text/html Patient is a 75yo who presents for an annual exam. NO concerns. TVH/BSO 1995. Was using a pessary for a while for prolapse, but got a bad vaginal infection and has chosen not to use it since. last pap-hyst mammo-2017 colonoscopy-unsu re dexa-2014 menopause-with hyst sexually active-no seatbelts-yes exercise-yes depression-denie s domestic violence-denies tobacco-former smoker (quit 20 years ago) concerns-none Shaunna Kenney MD [address], [place], [address], [place] - [facility] 07/29/2020 14:15:55 OBGyn Episode No OBEpisode recorded.
[2025-02-06 19:58] VITALS: BP 158/77; PULSE 76; RESP 20; TEMP 36.7; O2SAT 98
--- OUTSIDE RECORDS SUMMARY | 2025-02-06 19:58 | XMS_ITS | Continuity of Care Document ---
Author Organization [facility] Address [address] [facility] [address] [place] [address] Phone Care Team Providers Care Rock Wool Insulator Name Role Phone Leonor Long OT Unavailable Unavailable Procedures Procedure Date Therapeutic Activities Orthotic Mgmt and Training HFO w/o joints CF Advance Directives Directive Yes / No Effective Date File Name No Information Encounters Encounter Description Practice Location Reason(s) For Visit Diagnoses Date Provider Providers Copied on Encounter [facility], [address], [id number], tel:[phone] [place] No Information Mercedes Galvez. . [facility], [address], [id number], tel:[phone] [place] No Information Mercedes Galvez. . Referring Provider: Angel Coats, [address] [place] [address], [address]. tel:[phone] Family History Family Member Type Diagnosis Age At Onset No Information Payers Payer name Insurance type Covered alliance party ID Authoriza tion(s) [employer] [place] [id number] Social History Type Description Quantity Date Captured [...]
[2025-02-06] MEDS: TETRACAINE HCL 0.5% OPHTH SOLN 4 ML BTL LEFT EYE (20:11)
--- NOTE | 2025-02-06 20:11 | ED_ITS ---
HPI - Eye Problem General Chief complaint: Eye Problems Stated complaint: left eye Time Seen by Provider: 02/06/25 20:11 Source: patient and RN notes reviewed Mode of arrival: ambulatory Limitations: no limitations History of Present Illness HPI Narrative: 79-year-old female presents [facility] complaining of left eye injury approximately 1 hour ago. Patient said she was shaking her right in the went to go clean her kitchen once she was wiping account and a felt like something on her left eye. Patient immediately went to wash her eye out however she still feels like there is something in her eye. Patient reports that the whites of her eyes blood shot. Patient denies any vision changes, blurry vision, discharge, pain or eye. Patient denies any photophobia, headaches, nausea, vomiting, dizziness, or any other symptoms. Patient says she has a history of cataracts of both of her eyes is supposed to have the removed soon. Related Data Home Medications ?Medication ?Instructions ?Recorded ?Confirmed ?Last Taken ?Type atorvastatin 40 mg tablet 40 mg PO DAILY 06/13/23 06/16/23 Unknown History losartan 50 mg tablet 50 mg PO DAILY 06/13/23 06/16/23 Unknown History calcium carbonate (Calcium 600) 600 mg PO DAILY 06/16/23 06/16/23 Unknown History cholecalciferol (vitamin D3) 50 50 mcg PO DAILY 06/16/23 06/16/23 Unknown Histor y mcg (2,000 unit) capsule felodipine 2.5 mg tablet,extended mg PO 02/06/25 Unknown History release 24 hr Allergies Allergy/AdvReac Type Severity Reaction Status Date / Time rifampin Allergy Unknown passed out Verified 02/06/25 20:02 Review of Systems Review of Systems: CONSTITUTIONAL: Denies fever, body aches, chills, or sweats. EYES: Denies visual changes, or discharge. Positive for eye redness, foreign body sensation. ENT: Denies rhinorrhea, congestion, sore throat, or otalgia. CARDIOVASCULAR: Denies chest pain, palpitations, dizziness, lightheadedness, or edema. RESPIRATORY: Denies cough or dyspnea. GASTROINTESTINAL: Denies abdominal pain, nausea, vomiting, or diarrhea. GENITOURINARY: Denies dysuria or hematuria. SKIN: Denies rash or itching. MUSCULOSKELETAL: Denies back pain, joint pain, or myalgia. NEUROLOGIC: Denies headache, numbness, or weakness. PSYCHIATRIC: Denies anxiety or depression. All other systems reviewed are negative, except as documented in HPI. [facility]LY [facility] Past Medical History Medical History Lung disease Surgical History Surgical History History of bilateral carpal tunnel release History of elbow surgery History of hysterectomy History of laminectomy Social History Social History Smoking status: Former smoker Alcohol intake: never Substance use type: does not use Lack of Transportation: No Lack of Food: Never True Current Housing: I Have Housing Concerned About Future Housing: No Difficulty Paying Gas/Electric Bills: No Difficulty Paying for Meds: No Currently Unemployed: No Education: Bachelor's Degree Difficulty w/ Childcare or Family Care: No Living arrangements: with family Occupation/Education: retired Comments At the time of my signature, I reviewed and agree with the nursing past medical, surgical, social, and family history. There is no relevant family history pertinent to the patient complaint. Exam Narrative: GENERAL: This is a well-nourished, well-developed adult, in no apparent distress. They are non ill-appearing, nontoxic appearing. HEAD: normocephalic, atraumatic. EYES: Right Sclera clear/white. Left sclera with subconjunctival hemorrhage present to the medial side of the left eye. Conjunctiva normal. Vision is grossly intact. Extraocular movements intact. Pupils PERRLA. No obvious retained foreign body, bilateral upper and lower eyelids are unremarkable. No ciliary bodies present to left eye. Wood's lamp exam with fluorescein stain of left eye is unremarkable. No corneal laceration, no corneal abrasion, negative Erica sign, no evidence of globe rupture. Eversion of left upper and lower eyelid shows no evidence of retained foreign body, no obvious injury, stye formation, redness, or swelling. EARS: External ears normal. Hearing grossly intact. NOSE: External nose normal THROAT: Mucous membranes moist, NECK: Neck supple, CARDIOVASCULAR: Regular rate and rhythm RESPIRATORY: Respiratory rate normal, respiratory effort nonlabored, no respiratory distress SKIN: warm, Dry, intact with no suspicious lesions or rash, good texture and turgor. NEURO: awake, alert, and oriented to person, place and time. There were no obvious focal neurologic abnormalities. EXTREMITIES: No joint tenderness, effusion, or edema noted. Course Course Emergency Course: Portions of this record may have been created with voice recognition software Level of Care: Express Care Visit Vital Signs Vital signs: Vital Signs Temperature 98.1 F 02/06/25 19:58 Pulse Rate 76 02/06/25 19:58 Respiratory Rate 20 02/06/25 19:58 Blood Pressure 158/77 H 02/06/25 19:58 Pulse Oximetry 98 02/06/25 19:58 Oxygen Delivery Room Air 02/06/25 19:58 Temperature 98.1 F 02/06/25 19:58 Pulse Rate 76 02/06/25 19:58 Respiratory Rate 20 02/06/25 19:58 Blood Pressure 158/77 H 02/06/25 19:58 Pulse Oximetry 98 02/06/25 19:58 Oxygen Delivery Room Air 02/06/25 19:58 Reviewed MDM - Eye Problem MDM Narrative Medical decision making narrative: Patient irrigated her eye prior to arrival. Additional irrigation performed after Wood's lamp exam. Visual acuity grossly intact, patient has severe decreased visual acuity to her right eye however she has cataracts. Patient left injury to her left eye today if so acuity is 20/50. Wood's lamp exam patient's left eye is unremarkable, no evidence of corneal laceration, abrasion, or any evidence of globe rupture. Patient does have a subconjunctival hemorrhage to the medial side of her left eye. No retained foreign body and patient's eye or eyelid. Recommend conservative therapy. Discussed physical exam findings. Advised supportive measures and signs/symptoms to go to the ER. Pt is appropriate for outpt treatment and f/u. Differential Diagnosis Differential diagnosis: Likely corneal abrasion, conjunctivitis, subconjunctival hemorrhage, corneal ulcer and ruptured globe Critical Care Time Critical Care Time Critical Care Time: No Discharge Plan Discharge Clinical Impression: Subconjunctival hemorrhage of left eye Patient Disposition: Home Condition: Stable Instructions: Eye Pain (ED) Additional Instructions: Your eye exam is reassuring, there was no evidence of globe rupture, corneal laceration, or abrasion. No retained foreign body in your eyelids. There is a subconjunctival hemorrhage to URI. This is a self-limiting condition and should resolve in the next 2-3 weeks. Please follow-up with PCP in 3-5 days to make sure it your eyes healing appropriately. Please go to the ER immediately if he developed worsening eye pain, unequal pupils, vision problem my nausea, headaches, vomiting, worsening redness, green or yellow discharge, fevers, or any other concerns. Patient Language: Frisian Prescriptions: No Action felodipine 2.5 mg tablet extended release 24 hr PO mupirocin 2 % ointment 1 applic TOPICAL TID 7 Days Qty: 15 0RF losartan 50 mg tablet 50 mg PO DAILY atorvastatin 40 mg tablet 40 mg PO DAILY calcium carbonate [Calcium 600] 600 mg calcium (1,500 mg) tablet 600 mg PO DAILY cholecalciferol (vitamin D3) 50 mcg (2,000 unit) capsule 50 mcg PO DAILY Follow-up/Referrals: Harms,Damon Cole M.D. [Primary Care Provider] - Time of Disposition: 20:26
[2025-02-06] MEDS: FLUORESCEIN SOD 1 MG/STRIP LEFT EYE (20:12)
[2025-02-06] MEDS: DACRIOSE EYE IRRIGATION 118 ML BOTTLE LEFT EYE (20:12)
== END 2025-02-06 20:31 | disposition home or self-care (01) ==
PROVIDERS: PCP Family Medicine
DX: H11.32 Conjunctival hemorrhage, left eye (principal); H26.9 Unspecified cataract; J98.4 Other disorders of lung; Z87.891 Personal history of nicotine dependence
CPT/HCPCS: 99213; A9270; G0463